=== PATIENT | female | born 1955 | race Caucasian/White ===

== ENCOUNTER 2017-10-01 18:17 | Observation (INO) ==
[2017-10-01] MEDS ORDERED: Naloxone 0.4 MG/ML INJ IVP PRN ×2 (23:00)
[2017-10-01] MEDS ORDERED: OXYCODONE Oral CONC 10 MG/0.5 ML ORAL.SYG SL PRN (23:00)
[2017-10-01] MEDS ORDERED: Ipratropium/Albuterol Neb 3 ML IH PRN (23:11)
--- NOTE | 2017-10-01 23:14 | Internal Med History&Physical ---
Date of Encounter: 10/01/17 Time of Encounter: 22:30 Assessment and Plan (1) DVT prophylaxis Current visit: Yes Status: Acute Heparin subcutaneously (2) Closed dislocation of left hip Current visit: Yes Status: Acute Patient twisted her left leg caused left hip pain. X-ray shows dislocation of the arthroplasty. - Continue pain control. - Nothing by mouth from midnight, IV fluid - Consult orthopedics Qualifiers: Encounter type: initial encounter Qualified Code(s): S73.005A - Unspecified dislocation of left hip, initial encounter (3) Status post total hip replacement, left Current visit: No Status: Acute Postoperative care per orthopedics (4) COPD (chronic obstructive pulmonary disease) Current visit: No Status: Chronic Stable, no wheezing, DuoNeb when necessary Qualifiers: COPD type: unspecified COPD Qualified Code(s): J44.9 - Chronic obstructive pulmonary disease, unspecified (5) Tobacco use Current visit: No Status: Chronic Smoking cessation education. Nicotine patch Internal Medicine - H&P: HPI Chief complaint: Left hip pain Admitted From: Home Plans for Post Hospital Care: Home History of present illness: Ms. Bailno is a 62 year old female with a history of COPD, tobacco abuse, GERD , S/P hip arthroplasty surgery 17 days ago, transferred from [facility] emergency room for left hip pain. Patient had left hip arthroplasty surgery 17 days ago in our hospital. Patient generally recover well and was discharged the from rehabilitation 3 days ago. This morning patient twisted her left leg, heard a sound of 'pop" and started to have left-sided hip pain. Patient was sent to [facility] emergency room and x-ray of hip shows arthroplasty dislocation, no fracture. Patient was treated with pain medication. Orthopedic consult was called by [facility] emergency room and recommended the patient transferred to our hospital for further management. Past Med Surg Social Fam HX - Past Medical History Medical history: other Psychiatric history: no psych history - Past Surgical History Surgical History: other - Social History Smoking Status: Current every day smoker Smokeless Tobacco Status: No Alcohol use: none Drug use: none Internal Medicine - H&P: Meds Enoxaparin [Lovenox] 30 mg SQ Q12HR 10 Days #20 syr 09/13/17 [Rx] OxyCODONE Immed Rel [Roxicodone 5 MG] 5 mg PO Q6HR PRN 7 Days #28 tablet [Rx] Amitriptyline [Elavil] 25 mg PO HS 09/14/17 [History] Diclofenac Sodium [Voltaren] 50 mg PO BID 09/14/17 [History] Escitalopram [Lexapro] 10 mg PO DAILY 09/14/17 [History] Esomeprazole Magnesium [Nexium] 40 mg PO DAILY 09/14/17 [History] Gabapentin [Neurontin] 400 mg PO TID 09/14/17 [History] Ipratropium/Albuterol Sulfate [Combivent Respimat Inhal [place]] 2 puff IH Q6H PRN 09/14/17 [History] Primidone [Mysoline] 50 mg PO BID 09/14/17 [History] Ranitidine HCl [Zantac] 300 mg PO DAILY 09/14/17 [History] Rizatriptan Benzoate [Maxalt] 10 mg PO AD PRN 09/14/17 [History] Tizanidine HCl 4 mg PO TID PRN 09/14/17 [History] Topiramate [Topamax] 100 mg PO BID 09/14/17 [History] 3 Allergy/AdvReac Type Severity Reaction Status Date / Time aspirin [ASA] AdvReac Vomiting Verified 09/14/17 09:41 baclofen AdvReac Vomiting Verified 09/14/17 09:41 simvastatin AdvReac Vomiting Verified 09/14/17 09:41 All Systems PM: A 10-system review of systems was performed and is negative for pertinent findings except as documented above in the HPI. - Constitutional Vitals: Temp Pulse Resp BP Pulse Ox 98.5 F 81 16 125/63 97 10/01/17 22:42 10/01/17 22:42 10/01/17 22:42 10/01/17 22:42 10/01/17 22:42 General appearance: Present: mild distress, A&O X 3, answers questions appropriately - Head Head exam: Present: atraumatic, normocephalic - Eye Eye exam: Present: PERRL, conjuntiva pink, sclera anicteric Pupils: Present: PERRL - Neck Neck exam general surgery: Present: supple, trachea midline. Absent: lymphadenopathy - Respiratory Respiratory exam: Present: CTAB. Absent: accessory muscle use, rales, rhonchi, wheezes - Cardiovascular Cardiovascular exam: Present: RRR, +S1, +S2. Absent: diastolic murmur, gallop, rubs, systolic murmur - GI/Abdominal GI/Abdominal exam: Present: normal bowel sounds, soft, no peritoneal signs. Absent: distended, tenderness - Extremities Exam Extremities exam: Present: warm, radial pulses palpable and symmetrical. Absent : calf tenderness, cyanotic, pedal edema Additional comments: Left hip swelling, tender, ROM limited due to pain. - Neurological Exam Neurological exam: Present: CN II-XII intact, oriented X3, no focal deficits. Absent: pronater drift, facial droop, speech deficit - Skin Skin exam: Present: dry, intact
[2017-10-02] MEDS: 0.9 % Sodium Chloride 1,000 ML IVC SCH ×4 (00:06→22:10)
[2017-10-02] MEDS: *HR* Heparin 5,000 UNIT/ML VIAL SQ SCH ×2 (00:06→04:41)
[2017-10-02] MEDS: Pantoprazole 40 MG VIAL IVP SCH ×2 (00:06→09:12)
[2017-10-02] MEDS: OXYCODONE Oral CONC 10 MG/0.5 ML ORAL.SYG SL PRN ×4 (00:07→22:10)
[2017-10-02] MEDS ORDERED: Ketorolac 15 MG/ML VIAL IVP PRN (02:40)
[2017-10-02 05:03] LABS: Basophils % 0.5 %; Eosinophils # 0.3 K/mcL (0.0-0.6); Eosinophils % 4.5 %; Hematocrit 30.3 % (35.3-44.9); Hemoglobin 9.9 g/dL (11.5-15.4); Immature Granulocytes % 0.2 % (0-4); Lymphocytes # 2.9 K/mcL (0.6-4.6); Lymphocytes % 48.7 %; Mean Corpuscular HGB Conc 32.7 g/dL (31.6-35.5); Mean Corpuscular Hemoglobin 32.1 pg (28.0-33.3); Mean Corpuscular Volume 98.4 fL (83.0-100.0); Mean Platelet Volume 9.3 fL (9.4-12.4); Monocytes # 0.5 K/mcL (0.0-1.3); Monocytes % 7.5 %; Neutrophils # 2.3 K/mcL (1.6-8.9); Platelet Count 414 K/mcL (140-400); Red Blood Count 3.08 M/mcL (3.82-4.97); Segmented Neutrophils % 38.6 %
[2017-10-02 05:09] LABS: INR 1.1; Prothrombin Time 12.4 Seconds (9.4-12.1)
[2017-10-02 05:22] LABS: BUN/Creatinine Ratio 4 (6-26); Blood Urea Nitrogen 3 mg/dL (8-23); Calcium 8.4 mg/dL (8.6-10.3); Carbon Dioxide 27 mEq/L (23-29); Chloride 109 mEq/L (98-107); Glucose 90 mg/dL (70-105); Osmolality,Calculated 284 (280-300); Potassium 3.8 mEq/L (3.5-5.1); Sodium 139 mEq/L (136-145); eGFR For African Americans > 60 (> 60); eGFR For Non-African Americans > 60 (> 60)
--- NOTE | 2017-10-02 07:22 | Anesthesia Evaluation PreOp ---
Date of Encounter: 10/02/17 Time of Encounter: 08:00 - Past History Planned Operation: Closed Reduction Left Hip Cardiac History: HTN Pulmonary History: Smoker, COPD, KRAIG Dx [employer] History: Other (Migraine, peripheral neuropathy) Other Medical History: GERD Anesthesia History: No Prior Anesthetic Complications, Past Anesthesia (L5-S1 Fusion Decompression) : No ([facility]) Alcohol Use: none Drug use: none Medications and Allergies Enoxaparin [Lovenox] 30 mg SQ Q12HR 10 Days #20 syr 09/13/17 [Rx] OxyCODONE Immed Rel [Roxicodone 5 MG] 5 mg PO Q6HR PRN 7 Days #28 tablet [Rx] Amitriptyline [Elavil] 25 mg PO HS 09/14/17 [History] Diclofenac Sodium [Voltaren] 50 mg PO BID 09/14/17 [History] Escitalopram [Lexapro] 10 mg PO DAILY 09/14/17 [History] Esomeprazole Magnesium [Nexium] 40 mg PO DAILY 09/14/17 [History] Gabapentin [Neurontin] 400 mg PO TID 09/14/17 [History] Ipratropium/Albuterol Sulfate [Combivent Respimat Inhal [place]] 2 puff IH Q6H PRN 09/14/17 [History] Primidone [Mysoline] 50 mg PO BID 09/14/17 [History] Ranitidine HCl [Zantac] 300 mg PO DAILY 09/14/17 [History] Rizatriptan Benzoate [Maxalt] 10 mg PO AD PRN 09/14/17 [History] Tizanidine HCl 4 mg PO TID PRN 09/14/17 [History] Topiramate [Topamax] 100 mg PO BID 09/14/17 [History] 3 Allergy/AdvReac Type Severity Reaction Status Date / Time aspirin [ASA] AdvReac Vomiting Verified 09/14/17 09:41 baclofen AdvReac Vomiting Verified 09/14/17 09:41 simvastatin AdvReac Vomiting Verified 09/14/17 09:41 - Meds/Allergy Pre-op Review Medications Reviewed: Yes Allergies Reviewed: Yes Beta Blockers on Current Med List: No Anesthesia Results - Labs 10/02/17 04:14 10/02/17 04:14 Anesthesia Exam O2 Sat Height 1.7 m Weight 75.07 kg O2 Sat by Pulse Oximetry 97 O2 Sat by Pulse Oximetry 99 O2 Sat by Pulse Oximetry 97 Vital Signs Temp Pulse Resp BP Pulse Ox 98.5 F 81 16 125/63 97 10/01/17 22:42 10/01/17 22:42 10/01/17 22:42 10/01/17 22:42 10/01/17 22:42 Height: 5'7 Weight: 165 lbs NPO (# of Hours): MN Pain Scale: 2 - HEENT Pupil (Motor): Pupils equal, EOMI Mallampati: II Teeth: Edentulous Oral Opening: Greater than 3 - [employer] LOC: Oriented [employer] Motor: Normal RUE, Normal LUE, Normal RLE, Normal LLE, Normal Face [employer] Sensory: Normal: RUE, LUE, RLE, LLE, Face - Cardiac Rhythm: Regular Murmur: None JVD: No Carotid Bruit: No - Pulmonary Breath Sounds: bilateral Clear Respiratory Effort: Symmetrical Anesthesia Assess/Plan ASA Score: 3 (HTN KRAIG COPD) Modified Keene Scale for Level of Consciousness: Cooperative, oriented, and tranquil Anesthetic Plan: General Monitoring Plan: Standard Monitors Recovery Plan: PACU (Discussed GA, agrees to proceed)
[2017-10-02] MEDS ORDERED: Famotidine 20 MG/2 ML VIAL IVP ONE (07:46)
[2017-10-02] MEDS ORDERED: Acetaminophen IV 1,000 MG/100 ML INFUS..BTL IVPB ONE (07:47)
[2017-10-02] MEDS ORDERED: *HR* Propofol 200 MG/20 ML VIAL IVP ONE (07:54)
[2017-10-02] MEDS ORDERED: *HR* FentaNYL (PF) 100 MCG/2 ML VIAL ONE (07:54)
[2017-10-02] MEDS ORDERED: *HR* Succinylcholine 200 MG/10 ML VIAL IVP ONE (07:55)
[2017-10-02] MEDS ORDERED: Ondansetron 4 MG/2 ML VIAL ONE (07:55)
[2017-10-02] MEDS ORDERED: Lidocaine -MPF 2% 2 ML VIAL ONE (07:55)
--- NOTE | 2017-10-02 08:02 | Orthopedic Consult Note ---
Date of Encounter: 10/02/17 Time of Encounter: 08:00 Assessment and Plan (1) Failed total hip arthroplasty with dislocation Current Visit: Yes Status: Acute Patient will be taken to operating room for a closed reduction of the total hip. The risks, benefits alternatives were discussed the patient. Postoperative management was also discussed the patient. Qualifiers: Encounter type: initial encounter Qualified Code(s): T84.028A - Dislocation of other internal joint prosthesis, initial encounter; Z96.649 - Presence of unspecified artificial hip joint; Z96.649 - Presence of unspecified artificial hip joint (2) Status post total hip replacement, left Current Visit: No Status: Acute History of Present Illness Chief complaint: Left hip pain HPI: Ms. Bailon is a 62 year old female who is postoperative week #4 status post a left total hip arthroplasty. Patient was at home yesterday when she is twisting getting her medication bottle and felt a hip pop out. She has severe pain. Patient was taken to the [facility] ER where she was told if hip dislocated. She is transferred here for surgical care. Patient reports moderate pain right now. This is her first dislocation. Patient was just seen in the office 3 days ago. No complications with the surgery. Past Med Surg Social Fam HX - Past Medical History Medical history: other Psychiatric history: no psych history - Past Surgical History Surgical History: other - Social History Smoking Status: Current every day smoker Smokeless Tobacco Status: No Alcohol use: none Drug use: none Medications and Allergies Enoxaparin [Lovenox] 30 mg SQ Q12HR 10 Days #20 syr 09/13/17 [Rx] OxyCODONE Immed Rel [Roxicodone 5 MG] 5 mg PO Q6HR PRN 7 Days #28 tablet [Rx] Amitriptyline [Elavil] 25 mg PO HS 09/14/17 [History] Diclofenac Sodium [Voltaren] 50 mg PO BID 09/14/17 [History] Escitalopram [Lexapro] 10 mg PO DAILY 09/14/17 [History] Esomeprazole Magnesium [Nexium] 40 mg PO DAILY 09/14/17 [History] Gabapentin [Neurontin] 400 mg PO TID 09/14/17 [History] Ipratropium/Albuterol Sulfate [Combivent Respimat Inhal [place]] 2 puff IH Q6H PRN 09/14/17 [History] Primidone [Mysoline] 50 mg PO BID 09/14/17 [History] Ranitidine HCl [Zantac] 300 mg PO DAILY 09/14/17 [History] Rizatriptan Benzoate [Maxalt] 10 mg PO AD PRN 09/14/17 [History] Tizanidine HCl 4 mg PO TID PRN 09/14/17 [History] Topiramate [Topamax] 100 mg PO BID 09/14/17 [History] 3 Allergy/AdvReac Type Severity Reaction Status Date / Time aspirin [ASA] AdvReac Vomiting Verified 09/14/17 09:41 baclofen AdvReac Vomiting Verified 09/14/17 09:41 simvastatin AdvReac Vomiting Verified 09/14/17 09:41 All Systems Reviewed: The remainder of the systems were reviewed and are negative Physical Exam - Constitutional Vitals: Temp Pulse Resp BP Pulse Ox 98.0 F 68 16 133/69 97 10/02/17 06:44 10/02/17 06:44 10/02/17 06:44 10/02/17 06:44 10/02/17 06:44 General appearance IM: mild distress, A&O X 3, pleasant, answers questions appropriately Exam: Left lower extremity: Dressings in place at surgical wounds, left hip is flexed and adducted, unable to range hip secondary to severe pain. Leg is shortened. Patient is grossly vast intact distally. Results - Labs Result Diagrams: 10/02/17 04:14 10/02/17 04:14 Labs: Abnormal lab results RBC 3.08 M/mcL (3.82-4.97) L 10/02/17 04:14 Hgb 9.9 g/dL (11.5-15.4) L 10/02/17 04:14 Hct 30.3 % (35.3-44.9) L 10/02/17 04:14 Plt Count 414 K/mcL (140-400) H 10/02/17 04:14 MPV 9.3 fL (9.4-12.4) L 10/02/17 04:14 PT 12.4 Seconds (9.4-12.1) H 10/02/17 04:14 Chloride 109 mEq/L (98-107) H 10/02/17 04:14 BUN 3 mg/dL (8-23) L 10/02/17 04:14 BUN/Creatinine Ratio 4 (6-26) L 10/02/17 04:14 Calcium 8.4 mg/dL (8.6-10.3) L 10/02/17 04:14 H & H 10/02/17 Range/Units 04:14 Hgb 9.9 L (11.5-15.4) g/dL Hct 30.3 L (35.3-44.9) % All other labs normal. - Diagnostic results Hip x-ray: image reviewed (Left total hip arthroplasty dislocation, no loosening , no fractures) Consult Discharge Plan - Plan Referrals: Giselle Herny, [employer] [Primary Care Provider] -
[2017-10-02] MEDS ORDERED: Dexamethasone 4 MG/ML VIAL ONE (08:11)
[2017-10-02] MEDS ORDERED: Nicotine 21 MG PATCH.TD24 TD SCH (09:00)
--- NOTE | 2017-10-02 09:18 | Anesthesia Evaluation Post Op ---
Date of Encounter: 10/02/17 Time of Encounter: 08:45 - Vital Signs Vital Signs: Vital Signs/O2 Sat/Glucose, Most Current Temp Pulse Resp BP Pulse Ox 10/02/17 09:04 97.7 F 69 18 122/69 99 10/02/17 08:54 98.2 F 67 20 112/50 100 10/02/17 08:44 97.9 F 65 20 114/58 100 10/02/17 08:34 97.9 F 76 16 124/59 97 10/02/17 08:24 97.9 F 72 14 108/54 94 10/02/17 06:44 98.0 F 68 16 133/69 97 - Lungs Lungs: Clear Ascult./Percussion - Airway Airway: Non-obstructed - Cardiovascular Regular Rate - Mental Status Mental Status: Alert & Oriented, Answers Appropriately - Pain Pain Scale: 0 - Nausea Vomiting Nausea Vomiting: Not Present - Hydration Hydration: Ice chips - Discharge PostOp Status: Transfer Patient to floor
[2017-10-02] MEDS ORDERED: Naloxone 0.4 MG/ML INJ IVP PRN ×2 (09:21)
[2017-10-02] MEDS ORDERED: OXYCODONE Oral CONC 10 MG/0.5 ML ORAL.SYG SL PRN (09:21)
[2017-10-02] MEDS ORDERED: tiZANidine 4 MG TABLET PO PRN (09:21)
[2017-10-02] MEDS ORDERED: Ipratropium/Albuterol Neb 3 ML IH PRN ×2 (09:21)
[2017-10-02] MEDS ORDERED: (Rizatriptan Benzoate [Maxalt] 10 MG) PO PRN (09:30)
[2017-10-02] MEDS: Topiramate 100 MG TABLET PO SCH ×2 (09:51→19:34)
[2017-10-02] MEDS: Gabapentin 400 MG CAPSULE PO SCH ×3 (09:51→19:34)
--- NOTE | 2017-10-02 10:07 | Internal Med Progress Note ---
<Casper Thomas - Last Filed: 10/02/17 14:15> Date of Encounter: 10/02/17 Time of Encounter: 14:15 - Assessment and plan (1) Closed dislocation of left hip Current Visit: Yes Status: Acute Assessment and plan: Dislocation of the Left hip following arthroplasty 17 days before Patient underwent reduction in the OR this morning We will continue pain medication Qualifiers: Encounter type: initial encounter Qualified Code(s): S73.005A - Unspecified dislocation of left hip, initial encounter (2) Status post total hip replacement, left Current Visit: No Status: Chronic Assessment and plan: Postoperative care per orthopedics PT/OT Will be consulted (3) COPD (chronic obstructive pulmonary disease) Current Visit: No Status: Chronic Assessment and plan: Stable, no wheezing, DuoNeb when necessary Qualifiers: COPD type: unspecified COPD Qualified Code(s): J44.9 - Chronic obstructive pulmonary disease, unspecified (4) Tobacco use Current Visit: No Status: Chronic Assessment and plan: Smoking cessation education. Nicotine patch (5) DVT prophylaxis Current Visit: Yes Status: Acute Assessment and plan: SQ Heparin - Subjective Interval history: The patient is resting comfortably in bedside chair at time of exam. She says that since the reduction earlier her hip feels completely better. She says that basically she was leaning over to grab some medications at home, and at that time she felt her hip pop out. She was not able to move it and determined it was the best idea to go to the hospital at that time. She complains that her left leg has been swelling since the time of the arthroplasty, and has been unremitting. She has tried using compression stockings, however she is afraid that it will cut off circulation. She also has numbness in her left leg. She does say that while getting PT, she noticed that her left knee felt unstable, and had clicking and popping. - Constitutional Vitals: Temp Pulse Resp BP Pulse Ox 97.6 F 79 16 132/68 97 10/02/17 09:30 10/02/17 09:52 10/02/17 09:52 10/02/17 09:52 10/02/17 09:52 General appearance: Present: mild distress, A&O X 3, answers questions appropriately Exam: Gen: Vitals noted. No acute distress. AAOx3 HEENT: PERRL/EOMI, oropharynx clear, Normocephalic, atraumatic Neck: Supple. No adenopathy. Cardiac: RRR, no murmur, +S1/S2 Pulmonary: Mildly diminished b/l Abdomen: soft, nontender, BS noted, no guarding Back: Nontender throughout. MSK: s/p left hip arthroplasty, dislocation and reduction under sedation. Left leg remains in brace. Distal movement intact. Extremities: 1+ edema in the LLE, numbness and tingling present on exam with light touch. She says that this has been the case since surgery. Neuro: A&Ox3, moves all extremities, no focal deficits Psych: Appropriate mood and behavior Internal Medicine: Result - Labs CBC & Chem 7: 10/02/17 04:14 10/02/17 04:14 Labs: Short CBC 10/02/17 Range/Units 04:14 WBC 6.0 (4.3-11.1) K/mcL Hgb 9.9 L (11.5-15.4) g/dL Hct 30.3 L (35.3-44.9) % Plt Count 414 H (140-400) K/mcL Neutrophils # 2.3 (1.6-8.9) K/mcL BMP 10/02/17 04:14 Sodium 139 Potassium 3.8 Chloride 109 H Carbon Dioxide 27 BUN 3 L Creatinine 0.69 Glucose 90 Calcium 8.4 L - ABG Interpretation ABG results: PT/INR, D-dimer PT 12.4 Seconds (9.4-12.1) H 10/02/17 04:14 - Impressions Impressions Fluoroscopy 10/02/17 00:00 IMPRESSION: Intraprocedural fluoroscopic spot images as above. See separate procedure report for more information. D/ /02/2017 09:06:55 Amy Nunn MD / Angelica Solorio Interpreting Provider: Amy Nunn MD Hip X-Ray 10/02/17 00:00 IMPRESSION: Intraprocedural fluoroscopic spot images as above. See separate procedure report for more information. D/ /02/2017 09:06:55 Amy Nunn MD / Angelica Solorio Interpreting Provider: Amy Nunn MD - VTE Documentation of Mechanical Device: Intermittent pneumatic compression device Consult Discharge Plan - Plan Referrals: Giselle Henry, [employer] [Primary Care Provider] - <Don Singletary - Last Filed: 10/02/17 17:51> Date of Encounter: 10/02/17 - Constitutional Vitals: Temp Pulse Resp BP Pulse Ox 98.4 F 84 16 128/79 98 10/02/17 15:33 10/02/17 15:33 10/02/17 15:33 10/02/17 15:33 10/02/17 15:33 Internal Medicine: Result - Labs CBC & Chem 7: 10/02/17 04:14 10/02/17 04:14 Labs: Short CBC 10/02/17 Range/Units 04:14 WBC 6.0 (4.3-11.1) K/mcL Hgb 9.9 L (11.5-15.4) g/dL Hct 30.3 L (35.3-44.9) % Plt Count 414 H (140-400) K/mcL Neutrophils # 2.3 (1.6-8.9) K/mcL BMP 10/02/17 04:14 Sodium 139 Potassium 3.8 Chloride 109 H Carbon Dioxide 27 BUN 3 L Creatinine 0.69 Glucose 90 Calcium 8.4 L - ABG Interpretation ABG results: PT/INR, D-dimer PT 12.4 Seconds (9.4-12.1) H 10/02/17 04:14 - Impressions Impressions Fluoroscopy 10/02/17 00:00 IMPRESSION: Intraprocedural fluoroscopic spot images as above. See separate procedure report for more information. D/ / 10/02/2017 09:06:55 Amy Nunn MD / Angelica Solorio Interpreting Provider: Amy Nunn MD Hip X-Ray 10/02/17 00:00 IMPRESSION: Intraprocedural fluoroscopic spot images as above. See separate procedure report for more information. D/ 10/02/2017 09:06:55 Amy Nunn MD / Angelica Solorio Interpreting Provider: Amy Nunn MD - Attending Attestation I examined this patient and my medical decision-making was reviewed with the Resident Physician Dr. Thomas. I agree with the documented findings, disposition and treatment plan as described except to the extent set forth below. Ms. Bailon is a 62 year old female with a history of COPD, tobacco abuse, GERD , S/P hip arthroplasty surgery 17 days ago, transferred from [place] emergency room for left hip pain. She did develop Left hip arthroplasty dislocation, no fracture. Pt does c/o Left leg swelling and pain too. Gen: A, A, O x3 Chest : Diminished BS Heart: S1S2+ Ext: Moderate tenderness Left Hip, Significant swelling Left leg, no calf tenderness noticed a/p 1. Left hip pain due to Arthroplasty dislocation Just had closed reduction by Ortho 2. Left leg swelling with recent Hip surgery and not on proper anti coag at home concerning for DVT will check venous doppler in AM mean while will give therapeutic dose of Lovenox
[2017-10-02] MEDS: Ketorolac 15 MG/ML VIAL IVP PRN ×2 (11:44→19:34)
[2017-10-02] MEDS: *HR* Enoxaparin 80 MG/0.8 ML SYRINGE SQ SCH (16:38)
--- NOTE | 2017-10-02 17:52 | Operative Note ---
Date of procedure: 10/02/17 Pre-op diagnosis: Left total hip arthroplasty dislocation Post-op diagnosis: same Procedure: Left total hip arthroplasty closed reduction Anesthesia: SAWYER Surgeon: Cal Hatfield Was there an pastry assistant present: No Estimated blood loss (cc): 0 Specimen: 0 Condition: stable Disposition: PACU Procedure in Detail: Indications for surgery: Patient is a 62-year-old woman status post a left total hip arthroplasty 3 weeks ago. Patient made a twisting movement causing a dislocation of the hip. Procedure: The patient is brought to operating room and placed or table in supine position. She underwent general anesthesia. A timeout was performed. Axial traction was applied to the left lower extremity and the implants felt engaging. The hip was then flexed, lateral plexus traction and abducted until large pop felt as the hip reduced. The fluoroscopy unit was brought in and the hip was visualized showing it to be located. The patient is placed into a knee immobilizer followed by an abduction wedge pillow. She was then extubated and taken to recovery room stable condition.
[2017-10-02] MEDS ORDERED: *HR* Heparin 5,000 UNIT/ML VIAL SQ SCH (18:00)
[2017-10-03] MEDS: OXYCODONE Oral CONC 10 MG/0.5 ML ORAL.SYG SL PRN (03:19)
[2017-10-03] MEDS: *HR* Enoxaparin 80 MG/0.8 ML SYRINGE SQ SCH (06:09)
[2017-10-03 06:36] LABS: Basophils % 0.3 %; Eosinophils # 0.2 K/mcL (0.0-0.6); Eosinophils % 3.1 %; Hematocrit 29.8 % (35.3-44.9); Hemoglobin 9.6 g/dL (11.5-15.4); Immature Granulocytes % 0.6 % (0-4); Immature Platelets 1.8 % (1.1-6.1); Lymphocytes % 46.8 %; Mean Corpuscular HGB Conc 32.2 g/dL (31.6-35.5); Mean Corpuscular Hemoglobin 32.3 pg (28.0-33.3); Mean Corpuscular Volume 100.3 fL (83.0-100.0); Mean Platelet Volume 9.7 fL (9.4-12.4); Monocytes # 0.4 K/mcL (0.0-1.3); Neutrophils # 2.7 K/mcL (1.6-8.9); Nucleated Red Blood Cells 0.5 /100 WBC (0); Platelet Count 370 K/mcL (140-400); Red Blood Count 2.97 M/mcL (3.82-4.97); Red Cell Distribution Width 14.1 % (11.5-14.5); Segmented Neutrophils % 43.2 %
[2017-10-03 06:45] LABS: BUN/Creatinine Ratio 9 (6-26); Blood Urea Nitrogen 7 mg/dL (8-23); Calcium 8.6 mg/dL (8.6-10.3); Carbon Dioxide 26 mEq/L (23-29); Chloride 107 mEq/L (98-107); Glucose 107 mg/dL (70-105); Osmolality,Calculated 282 (280-300); Potassium 3.6 mEq/L (3.5-5.1); Sodium 137 mEq/L (136-145); eGFR For African Americans > 60 (> 60); eGFR For Non-African Americans > 60 (> 60)
[2017-10-03] MEDS ORDERED: Nicotine 21 MG PATCH.TD24 TD SCH (09:00)
[2017-10-03] MEDS ORDERED: Pantoprazole 40 MG VIAL IVP SCH (09:00)
[2017-10-03] MEDS: Topiramate 100 MG TABLET PO SCH (09:44)
[2017-10-03] MEDS: Gabapentin 400 MG CAPSULE PO SCH (09:44)
[2017-10-03 12:22] VITALS: BP 125/67
--- NOTE | 2017-10-03 13:42 | Discharge Summary ---
<Casper Thomas - Last Filed: 10/03/17 14:27> Date of Encounter: 10/03/17 Time of Encounter: 08:40 - Discharge Diagnosis (1) Closed dislocation of left hip Priority: Primary Status: Acute Qualifiers: Encounter type: initial encounter Qualified Code(s): S73.005A - Unspecified dislocation of left hip, initial encounter (2) Status post total hip replacement, left Priority: Secondary Status: Chronic (3) COPD (chronic obstructive pulmonary disease) Priority: Secondary Status: Chronic Qualifiers: COPD type: unspecified COPD Qualified Code(s): J44.9 - Chronic obstructive pulmonary disease, unspecified (4) Tobacco use Priority: Secondary Status: Chronic Hospital course: Ms. Bailon is a 62 year old female with history of COPD, tobacco abuse, GERD, status post hip arthroplasty 19 days ago who was transferred from [place] emergency room for left hip pain. The patient was discharged from rehabilitation facility approximately 3 days prior to presentation. She bent over to pickler helper something off the floor, and at that time she said she felt her hip pop. From then on she felt like she could not move it and she was in extreme pain. She went to the hospital at which time she was found to have a dislocation of the arthroplasty hip, and was transferred to [facility]. The following morning, the patient was taken to the OR for reduction of hip dislocation under anesthesia, and she tolerated this procedure with no complications. On exam that morning and the following morning the patient did demonstrate a significantly swollen left leg, which she mentioned was present since the first surgery. Because the patient is at high risk following surgery for DVT, I did start the patient on therapeutic Lovenox as well as get a Doppler ultrasound of the left leg which did not demonstrate any clots. Therapeutic Lovenox was stopped at that time. The patient was seen and evaluated by physical therapy and occupational therapy who determined that the patient is a good candidate for home therapy and treatment. I spoke with the patient at length, and she believes that this is an appropriate option. The orthopedic surgeon also agrees that the patient is prepared to go home. I will provide the patient with 2 days worth of pain medication for severe pain, and she should follow up with both primary care and orthopedic surgery in 3-5 days. Discharge discussed with: patient, nurse, social work, case management, healthcare economics consultant - Time Spent with Patient Total time spent providing and/or coordinating discharge services: - Discharge Medications Prescriptions: Enoxaparin [Lovenox] 30 mg SQ Q12HR 14 Days syr HYDROcodone/Acet 5/325 mg [[place] 5-325 mg] 1 tab PO Q6H PRN 2 Days #8 tab PRN Reason: severe pain Nicotine Patch [Nicoderm] 21 mg TD DAILY #30 patch.td24 Home Medications: OxyCODONE Immed Rel [Roxicodone 5 MG] 5 mg PO Q6HR PRN 7 Days #28 tablet [Rx] Amitriptyline [Elavil] 25 mg PO HS 09/14/17 [History] Diclofenac Sodium [Voltaren] 50 mg PO BID 09/14/17 [History] Escitalopram [Lexapro] 10 mg PO DAILY 09/14/17 [History] Esomeprazole Magnesium [Nexium] 40 mg PO DAILY 09/14/17 [History] Gabapentin [Neurontin] 400 mg PO TID 09/14/17 [History] Ipratropium/Albuterol Sulfate [Combivent Respimat Inhal [place]] 2 puff IH Q6H PRN 09/14/17 [History] Primidone [Mysoline] 50 mg PO BID 09/14/17 [History] Ranitidine HCl [Zantac] 300 mg PO DAILY 09/14/17 [History] Rizatriptan Benzoate [Maxalt] 10 mg PO AD PRN 09/14/17 [History] Tizanidine HCl 4 mg PO HS 09/14/17 [History] Topiramate [Topamax] 100 mg PO BID 09/14/17 [History] Furosemide [Lasix] 20 mg PO DAILY PRN 10/02/17 [History] Nicotine Patch [Nicoderm] 21 mg TD DAILY 10/02/17 [History] Enoxaparin [Lovenox] 30 mg SQ Q12HR 14 Days syr 10/03/17 [Rx] HYDROcodone/Acet 5/325 mg [[place] 5-325 mg] 1 tab PO Q6H PRN 2 Days #8 tab [Rx] Nicotine Patch [Nicoderm] 21 mg TD DAILY #30 patch.td24 10/03/17 [Rx] Allergies/Adverse Reactions: 3 Allergy/AdvReac Type Severity Reaction Status Date / Time aspirin [ASA] AdvReac Vomiting Verified 10/02/17 11:09 baclofen AdvReac Vomiting Verified 10/02/17 11:09 simvastatin AdvReac Vomiting Verified 10/02/17 11:09 Date of admission: 10/01/17 22:23 Primary care physician: Giselle Henry CNP Consults: 10/02/17 09:21 Consult to Physical Therapy [CONS] Stat Comment: Evaluate, develop and implement POC Reason for Consult: ambulation WBAT Total hip precautions Keep knee immobilzer in place Does patient have active BEDREST order?: No Is patient medically & hemodynamically stable?: Yes Patient assessed for mobility or mobilized this visit?: No 10/02/17 09:25 OT [Consult to Occupational Therapy] [CONS] Routine Comment: Evaluate, develop and implement POC Reason for Consult: WEIGHT BEARING TOLERATED Does patient have active BEDREST order?: No Is patient medically & hemodynamically stable?: Yes Discharging clinician: Casper Thomas Anticipated date of discharge: 10/03/17 - Constitutional Vitals: Temp Pulse Resp BP Pulse Ox 97.9 F 79 16 125/67 95 10/03/17 12:21 10/03/17 12:21 10/03/17 12:21 10/03/17 12:21 10/03/17 12:21 General appearance: Present: mild distress, A&O X 3, answers questions appropriately Exam: Gen: Vitals noted. No acute distress. AAOx3 HEENT: PERRL/EOMI, oropharynx clear, Normocephalic, atraumatic Neck: Supple. No adenopathy. Cardiac: RRR, no murmur, +S1/S2 Pulmonary: Mildly diminished b/l Abdomen: soft, nontender, BS noted, no guarding Back: Nontender throughout. MSK: s/p left hip arthroplasty, dislocation and reduction under sedation. Left leg remains in brace. Distal movement intact. Extremities: 1+ edema in the LLE, numbness and tingling present on exam with light touch. She says that this has been the case since surgery. Neuro: A&Ox3, moves all extremities, no focal deficits Psych: Appropriate mood and behavior - Patient Status Disposition: Home Health Service Condition: Fair Functional capacity at discharge: wheelchair bound Overall status at discharge: patient is progressing back to baseline - Discharge Instructions Follow Up With: Giselle Henry, BID WRITER [Primary Care Provider] - Additional Instructions: -Follow-up with primary care and orthopedic surgery in 3-5 days -Do not ambulate without assistance, or without authorization from surgeon or PT /OT -You may use over the counter pain medication such as tylenol or Ibuprofen for mild pain. Use prescribed pain medication for severe pain (6-9) -Return to the ED for recurrence of pain or symptoms -Return to the ED for worsening leg swelling, redness, or pain. Also return for chest pain, rapid heart rate, or shortness of breath above baseline. Follow-up appointments: If there is not an appointment listed below, please call your physician and schedule a follow-up appointment. If you have congestive heart failure and your symptoms return, make an appointment with your physician. Medication List: Carry an up to date list of medications you are taking at all time. We have given you an updated medication list including any new medications that you have been prescribed. Please provide that list to your primary provider Symptoms: If your condition changes or you experience any of the following symptoms, notify your physician immediately: Unusual or worsening pain, fever, persistent nausea and vomiting, bleeding, increase in swelling (especially in your legs), sudden weight gain, extreme dizziness, chest pain, increased drainage or redness from a wound or incision. Go to the emergency department if you experience a problem with breathing. Weights: If you have a history of swelling or shortness of breath, weigh yourself daily and notify your physician if you have a weight gain of two or more pounds in one day or 5 or more pounds in a week. If you experience any of the warning signs for stroke: Sudden numbness or weakness of the face, arm or leg; especially on one side of the body, sudden confusion, trouble speaking or understanding, sudden trouble seeing in one or both eyes, sudden trouble walking, dizziness, loss of balance or coordination, sudden sever headache with no cause; Call 911 or go to the emergency room. Stroke is a medical emergency. Some risk factors for stroke: Age, cigarette smoking, diabetes, excessive alcohol consumption, family history , high blood pressure, overweight, physical inactivity, prior stroke, heart attack, diagnosis of carotid artery stenosis or other artery disease. If you smoke, STOP: Smoking or tobacco use significantly increases your risk of heart and lung disease. Your chance of disease greatly increases if you continue to smoke. For more information, call the [place] tobacco quit line for smoking cessation 3-355- QUIT-NOW ( ) - Diet and Activity Activity: as per physical therapy Diet: advance to your usual diet - VTE Documentation of Mechanical Device: Intermittent pneumatic compression device <Dominic Santos - Last Filed: 10/03/17 17:51> Date of Encounter: 10/03/17 Hospital course: Ms. Bailon is a 62 year old female - Time Spent with Patient Total time spent providing and/or coordinating discharge services: Date of admission: 10/01/17 22:23 Primary care physician: Giselle Henry CNP Consults: 10/02/17 09:21 Consult to Physical Therapy [CONS] Stat Comment: Evaluate, develop and implement POC Reason for Consult: ambulation WBAT Total hip precautions Keep knee immobilzer in place Does patient have active BEDREST order?: No Is patient medically & hemodynamically stable?: Yes Patient assessed for mobility or mobilized this visit?: No 10/02/17 09:25 OT [Consult to Occupational Therapy] [CONS] Routine Comment: Evaluate, develop and implement POC Reason for Consult: WEIGHT BEARING TOLERATED Does patient have active BEDREST order?: No Is patient medically & hemodynamically stable?: Yes - Constitutional Vitals: Temp Pulse Resp BP Pulse Ox 97.9 F 79 16 125/67 95 10/03/17 12:21 10/03/17 12:21 10/03/17 12:21 10/03/17 12:21 10/03/17 12:21 - Attending Attestation I examined this patient and my medical decision-making was reviewed with the Resident Physician. I agree with the documented findings, disposition and treatment plan as described except to the extent set forth below.
--- NOTE | 2017-10-03 14:10 | Physician Discharge Referral ---
<Casper Thomas - Last Filed: 10/03/17 14:08> Home Health/Hosp Referral Info Transfer to: Home Health Attending Provider: Dominic Santos Provider in Charge Post Discharge: PCP - Diagnosis (1) Closed dislocation of left hip Priority: Primary Status: Acute (2) Status post total hip replacement, left Priority: Primary Status: Chronic (3) COPD (chronic obstructive pulmonary disease) Priority: Secondary Status: Chronic (4) Tobacco use Priority: Secondary Status: Chronic - Respiratory Orders Oxygen / L per min (Per home prescription) Smoking Cessation: Smoking cessation has been advised. For more information, call the [place] Tobacco Quit Line at 0-469-NOSH-NOW. - Diet/Nutrition Diet/Nutrition Orders: Regular - Activity Activity Orders: Chair (Per PT) - Services Needed Following services are medically necessary services: Nursing, Home Health Aide, Physical Therapy, Occupational Therapy - Transfer Medications Prescriptions: Enoxaparin [Lovenox] 30 mg SQ Q12HR 14 Days syr HYDROcodone/Acet 5/325 mg [[place] 5-325 mg] 1 tab PO Q6H PRN 2 Days #8 tab PRN Reason: severe pain Nicotine Patch [Nicoderm] 21 mg TD DAILY #30 patch.td24 Home Medications: OxyCODONE Immed Rel [Roxicodone 5 MG] 5 mg PO Q6HR PRN 7 Days #28 tablet [Rx] Amitriptyline [Elavil] 25 mg PO HS 09/14/17 [History] Diclofenac Sodium [Voltaren] 50 mg PO BID 09/14/17 [History] Escitalopram [Lexapro] 10 mg PO DAILY 09/14/17 [History] Esomeprazole Magnesium [Nexium] 40 mg PO DAILY 09/14/17 [History] Gabapentin [Neurontin] 400 mg PO TID 09/14/17 [History] Ipratropium/Albuterol Sulfate [Combivent Respimat Inhal [place]] 2 puff IH Q6H PRN 09/14/17 [History] Primidone [Mysoline] 50 mg PO BID 09/14/17 [History] Ranitidine HCl [Zantac] 300 mg PO DAILY 09/14/17 [History] Rizatriptan Benzoate [Maxalt] 10 mg PO AD PRN 09/14/17 [History] Tizanidine HCl 4 mg PO HS 09/14/17 [History] Topiramate [Topamax] 100 mg PO BID 09/14/17 [History] Furosemide [Lasix] 20 mg PO DAILY PRN 10/02/17 [History] Nicotine Patch [Nicoderm] 21 mg TD DAILY 10/02/17 [History] Enoxaparin [Lovenox] 30 mg SQ Q12HR 14 Days syr 10/03/17 [Rx] HYDROcodone/Acet 5/325 mg [[place] 5-325 mg] 1 tab PO Q6H PRN 2 Days #8 tab [Rx] Nicotine Patch [Nicoderm] 21 mg TD DAILY #30 patch.td24 10/03/17 [Rx] Allergies/Adverse Reactions: 3 Allergy/AdvReac Type Severity Reaction Status Date / Time aspirin [ASA] AdvReac Vomiting Verified 10/02/17 11:09 baclofen AdvReac Vomiting Verified 10/02/17 11:09 simvastatin AdvReac Vomiting Verified 10/02/17 11:09 Certification: Further, I certify that my clinical findings support that this patient is homebound (i.e. absences from home require considerable and taxing effort and are for medical reasons or islam services or infrequently or short duration when for other reasons) because: Homebound Reason: Patient requires assistance of a person or device to safely leave home, Post-surgery restriction and or conditions limit ability to leave home Attestation: My signature below is to certify that this patient is under my care and that I, or nurse practitioner, or a physician's assistant corporate secretary working with me, has a face-to -face encounter with this patient. <Dominic Santos - Last Filed: 10/03/17 17:55> - Respiratory Orders Smoking Cessation: Smoking cessation has been advised. For more information, call the [place] Tobacco Quit Line at 9-492-EJPJ-NOW. Certification: Further, I certify that my clinical findings support that this patient is homebound (i.e. absences from home require considerable and taxing effort and are for medical reasons or islam services or infrequently or short duration when for other reasons) because: Attestation: My signature below is to certify that this patient is under my care and that I, or nurse practitioner, or a physician's assistant corporate secretary working with me, has a face-to -face encounter with this patient. - Attending Attestation I examined this patient and my medical decision-making was reviewed with the Resident Physician. I agree with the documented findings, disposition and treatment plan as described except to the extent set forth below.
--- NOTE | 2017-10-03 15:35 | Orthopedics Progress Note ---
Date of Encounter: 10/03/17 Time of Encounter: 13:45 Subjective Principal diagnosis: POD#1 s/p Left total hip arthroplasty closed reduction 10/02 Interval history: Patient doing well today with no concerns. Pain tolerable/improving since reduction. No events overnight. Denies any n/t to extremity, denies calf pain. Continue in knee immoblizer. WBAT. Keep follow up with Dr. Salinas as scheduled next week. Objective Vital signs: Vital Signs Temp Pulse Resp BP Pulse Ox 10/03/17 12:21 97.9 F 79 16 125/67 95 10/03/17 06:47 98.6 F 69 17 116/63 92 10/03/17 02:58 98.4 F 76 16 115/67 93 10/02/17 22:52 98.7 F 64 16 147/74 96 10/02/17 19:08 98.4 F 76 18 128/70 96 Intake and Output 10/02/17 10/03/17 10/03/17 23:59 07:59 15:59 Intake Total 1240 / 1240 1240 / 1240 Output Total 1500 / 1500 1200 / 1200 1700 / 1700 Balance -260 / -260 -1200 / -1200 -460 / -460 Intake: IV Fluids 1000 / 1000 1000 / 1000 0.9 % Sodium Chloride 1,000 ML 1000 / 1000 @ 90 mls/hr IVC .[id number] [facility] Rx# :[id number] Oral 240 / 240 240 / 240 Output: Urine 1500 / 1500 1200 / 1200 1700 / 1700 Other: Meal Dinner Breakfast Percent of Meal Consumed 100% 90% Weight 79.515 kg Patient Weight 10/03/17 23:59 Weight 79.515 kg - Labs CBC & BMP: 10/03/17 04:09 10/03/17 04:09 Labs: Abnormal lab results RBC 2.97 M/mcL (3.82-4.97) L 10/03/17 04:09 Hgb 9.6 g/dL (11.5-15.4) L 10/03/17 04:09 Hct 29.8 % (35.3-44.9) L 10/03/17 04:09 MCV 100.3 fL (83.0-100.0) H 10/03/17 04:09 Nucleated RBCs/100 WBC 0.5 /100 WBC (0) H 10/03/17 04:09 PT 12.4 Seconds (9.4-12.1) H 10/02/17 04:14 BUN 7 mg/dL (8-23) L 10/03/17 04:09 Glucose 107 mg/dL (70-105) H 10/03/17 04:09 - VTE Documentation of Mechanical Device: Intermittent pneumatic compression device Consult Discharge Plan - Plan Additional Instructions: -Follow-up with primary care and orthopedic surgery in 3-5 days -Do not ambulate without assistance, or without authorization from surgeon or PT /OT -You may use over the counter pain medication such as tylenol or Ibuprofen for mild pain. Use prescribed pain medication for severe pain (6-03/27) -Return to the ED for recurrence of pain or symptoms -Return to the ED for worsening leg swelling, redness, or pain. Also return for chest pain, rapid heart rate, or shortness of breath above baseline. Follow-up appointments: If there is not an appointment listed below, please call your physician and schedule a follow-up appointment. If you have congestive heart failure and your symptoms return, make an appointment with your physician. Medication List: Carry an up to date list of medications you are taking at all time. We have given you an updated medication list including any new medications that you have been prescribed. Please provide that list to your primary provider Symptoms: If your condition changes or you experience any of the following symptoms, notify your physician immediately: Unusual or worsening pain, fever, persistent nausea and vomiting, bleeding, increase in swelling (especially in your legs), sudden weight gain, extreme dizziness, chest pain, increased drainage or redness from a wound or incision. Go to the emergency department if you experience a problem with breathing. Weights: If you have a history of swelling or shortness of breath, weigh yourself daily and notify your physician if you have a weight gain of two or more pounds in one day or 5 or more pounds in a week. If you experience any of the warning signs for stroke: Sudden numbness or weakness of the face, arm or leg; especially on one side of the body, sudden confusion, trouble speaking or understanding, sudden trouble seeing in one or both eyes, sudden trouble walking, dizziness, loss of balance or coordination, sudden sever headache with no cause; Call 911 or go to the emergency room. Stroke is a medical emergency. Some risk factors for stroke: Age, cigarette smoking, diabetes, excessive alcohol consumption, family history , high blood pressure, overweight, physical inactivity, prior stroke, heart attack, diagnosis of carotid artery stenosis or other artery disease. If you smoke, STOP: Smoking or tobacco use significantly increases your risk of heart and lung disease. Your chance of disease greatly increases if you continue to smoke. For more information, call the [place] tobacco quit line for smoking cessation - ( ) Referrals: Giselle Henry, DANCING TEACHER [Primary Care Provider] - Prescriptions: Enoxaparin [Lovenox] 30 mg SQ Q12HR 14 Days syr HYDROcodone/Acet 5/325 mg [[place] 5-325 mg] 1 tab PO Q6H PRN 2 Days #8 tab PRN Reason: severe pain Nicotine Patch [Nicoderm] 21 mg TD DAILY #30 patch.td24
== END 2017-10-03 15:22 | disposition home health service (06) ==
LOC: 3NENU
PROVIDERS: ADMIT Student in an Organized Health Care Education/Training Program; ATTEND Student in an Organized Health Care Education/Training Program

== ENCOUNTER 2017-10-19 06:03 | Observation (INO) ==
[2017-10-19] MEDS ORDERED: *HR* HYDROcodone/Acet 5/325 mg TABLET PO PRN ×2 (11:55→15:42)
[2017-10-19] MEDS ORDERED: Naloxone 0.4 MG/ML INJ IVP PRN ×3 (11:55→15:42)
[2017-10-19] MEDS ORDERED: Acetaminophen 325 MG TABLET PO PRN ×2 (11:55→15:42)
[2017-10-19] MEDS ORDERED: *HR* OxyCODONE Immed Rel 5 MG TABLET PO PRN (11:55)
[2017-10-19] MEDS ORDERED: 0.9 % Sodium Chloride 1,000 ML IVC SCH (12:00)
--- NOTE | 2017-10-19 12:10 | Orthopedic History & Physical ---
Date of Encounter: 10/20/17 Time of Encounter: 12:03 Assessment and Plan (1) Closed dislocation of left hip Current visit: No Status: Acute Ms. Bailon is a 62 year old female, seen at [facility] ED for a recurrent dislocation of Left total hip replacement early this morning. She was transferred to [facility] per for further orthopedic assessment and closed reduction. Per report, ED physicians attempted to close reduce her hip in the ED two times unsuccessfully. Patient had a L THR ROBOTIC 09/14/17 by , with an uneventful post- operative recovery. She had a dislocation of her left hip on 10/03/17, due to suspected fall per reports and underwent a closed reduction in OR by . She has been following up with in [facility] since this incident and doing well. Plan: Discussed and reviewed with . OR today with for Closed reduction of Left hip. Consent obtained and signed by patient. Awaiting repeat XRAYS and labwork NPO Pain control NWB to LLE DVT prophylaxis. Plan for D/C in AM. . (2) Status post total hip replacement, left Current visit: No Status: Chronic (3) COPD (chronic obstructive pulmonary disease) Current visit: No Status: Chronic Qualifiers: COPD type: unspecified COPD Qualified Code(s): J44.9 - Chronic obstructive pulmonary disease, unspecified (4) HTN (hypertension) Current visit: No Status: Chronic Qualifiers: Hypertension type: essential hypertension Qualified Code(s): I10 - Essential (primary) hypertension (5) KRAIG (obstructive sleep apnea) Current visit: No Status: Chronic History of Present Illness Chief complaint: Recurrent Left hip dislocation of Total hip replacement HPI: Ms. Bailon is a 62 year old female, seen at [facility] ED for a recurrent dislocation of Left total hip replacement early this morning. She was transferred to [facility] per for further orthopedic assessment and closed reduction. Per report, ED physicians attempted to close reduce her hip in the ED two times unsuccessfully. Patient had a L THR ROBOTIC 09/14/17 by , with an uneventful post- operative recovery. She had a dislocation of her left hip on 10/03/17, due to suspected fall per reports and underwent a closed reduction in OR by . She has been following up with in [facility] since this incident and doing well. Patient reports: Exam: A&O x 3, in no apparent distress. LLE: shortened and IR of leg Plan: OR today with for Closed reduction of Left hip. Consent obtained and signed by patient. Awaiting repeat XRAYS and labwork. Past Med Surg Social Fam HX - Past Medical History Medical history: COPD, GERD, other Psychiatric history: no psych history - Past Surgical History Surgical History: orthopedic, other, other - Social History Smoking Status: Current every day smoker Smokeless Tobacco Status: No Alcohol use: none Drug use: none Medications and Allergies Amitriptyline [Elavil] 25 mg PO HS 09/14/17 [History] Diclofenac Sodium [Voltaren] 50 mg PO BID 09/14/17 [History] Escitalopram [Lexapro] 10 mg PO DAILY 09/14/17 [History] Esomeprazole Magnesium [Nexium] 40 mg PO DAILY 09/14/17 [History] Gabapentin [Neurontin] 400 mg PO TID 09/14/17 [History] Ipratropium/Albuterol Sulfate [Combivent Respimat Inhal [place]] 2 puff IH Q6H PRN 09/14/17 [History] Primidone [Mysoline] 50 mg PO BID 09/14/17 [History] Ranitidine HCl [Zantac] 300 mg PO DAILY 09/14/17 [History] Rizatriptan Benzoate [Maxalt] 10 mg PO AD PRN 09/14/17 [History] Tizanidine HCl 4 mg PO HS 09/14/17 [History] Topiramate [Topamax] 100 mg PO BID 09/14/17 [History] Furosemide [Lasix] 20 mg PO DAILY PRN 10/02/17 [History] Carboxymethylcellulose Sodium [Refresh Plus] 1 drop OP DAILY PRN 10/19/17 [ History] HYDROcodone/Acet 5/325 mg [[place] 5-325 mg] 1 tab PO Q6H PRN 10/19/17 [History] Naproxen Sodium [Aleve] 220 mg PO DAILY PRN 10/19/17 [History] OxyCODONE Immed Rel [Roxicodone 5 MG] 5 mg PO Q4HR PRN 4 Days #12 tablet [Rx] 3 Allergy/AdvReac Type Severity Reaction Status Date / Time aspirin [ASA] AdvReac Vomiting Verified 10/19/17 11:37 baclofen AdvReac Vomiting Verified 10/19/17 11:37 simvastatin AdvReac Vomiting Verified 10/19/17 11:37 All Systems Reviewed: The remainder of the systems were reviewed and are negative - Constitutional Constitutional: as per HPI, weakness, no fever(s), no frequent falls - Cardiovascular Cardiovascular: no chest pain, no dyspnea on exertion, no edema, no irregular heart rhythm, no leg edema, no rapid heart rate, no syncope - Respiratory Respiratory: no cough, no dyspnea, no hemoptysis, no dyspnea on exertion - Musculoskeletal Musculoskeletal: abnormal gait, limited range of motion, muscle weakness, no back pain, no joint swelling, no numbness, no radiating pain into limb, no tingling Physical Exam - Constitutional Vitals: Temp Pulse Resp BP Pulse Ox 97.9 F 70 18 114/67 98 10/19/17 11:25 10/19/17 11:25 10/19/17 11:25 10/19/17 11:25 10/19/17 10:59 General appearance IM: A&O X 3, pleasant, no acute distress, answers questions appropriately Results - Labs Result Diagrams: 10/20/17 06:39 10/20/17 06:39 Labs: All other labs normal.
[2017-10-19] MEDS ORDERED: Acetaminophen IV 500 MG/50 ML INFUS..BTL IVPB ONE (12:47)
[2017-10-19 12:58] LABS: INR 1.1; Prothrombin Time 11.9 Seconds (9.4-12.1)
[2017-10-19 13:00] LABS: Activated Partial Thrombo Time 27.4 Seconds (26.0-36.0)
[2017-10-19 13:12] LABS: Alanine Aminotransferase 6 Units/L (7-52); Albumin 3.6 g/dL (3.5-5.7); Albumin/Globulin Ratio 1.6 (1.1-2.2); Alkaline Phosphatase 130 Units/L (34-104); Aspartate Amino Transferase 15 Units/L (13-39); BUN/Creatinine Ratio 14 (6-26); Bilirubin,Total 0.4 mg/dL (0.3-1.0); Blood Urea Nitrogen 10 mg/dL (8-23); Calcium 8.8 mg/dL (8.6-10.3); Carbon Dioxide 27 mEq/L (23-29); Chloride 101 mEq/L (98-107); Globulin 2.2 g/dL (2.4-3.5); Glucose 90 mg/dL (70-105); Osmolality,Calculated 271 (280-300); Potassium 3.9 mEq/L (3.5-5.1); Sodium 131 mEq/L (136-145); Total Protein 5.8 g/dL (6.4-8.9); eGFR For African Americans > 60 (> 60); eGFR For Non-African Americans > 60 (> 60)
--- NOTE | 2017-10-19 14:07 | Anesthesia Evaluation PreOp ---
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 TENDER History: Denies Any Significant HX Other Medical History: Denies Any Significant HX Anesthesia History: No Prior Anesthetic Complications, Past Anesthesia (left ROSAS , closed reduction left hip, B[place]) : No Alcohol Use: none Drug use: none Medications and Allergies Amitriptyline [Elavil] 25 mg PO HS 09/14/17 [History] Diclofenac Sodium [Voltaren] 50 mg PO BID 09/14/17 [History] Escitalopram [Lexapro] 10 mg PO DAILY 09/14/17 [History] Esomeprazole Magnesium [Nexium] 40 mg PO DAILY 09/14/17 [History] Gabapentin [Neurontin] 400 mg PO TID 09/14/17 [History] Ipratropium/Albuterol Sulfate [Combivent Respimat Inhal [place]] 2 puff IH Q6H PRN 09/14/17 [History] Primidone [Mysoline] 50 mg PO BID 09/14/17 [History] Ranitidine HCl [Zantac] 300 mg PO DAILY 09/14/17 [History] Rizatriptan Benzoate [Maxalt] 10 mg PO AD PRN 09/14/17 [History] Tizanidine HCl 4 mg PO HS 09/14/17 [History] Topiramate [Topamax] 100 mg PO BID 09/14/17 [History] Furosemide [Lasix] 20 mg PO DAILY PRN 10/02/17 [History] Carboxymethylcellulose Sodium [Refresh Plus] 1 drop OP DAILY PRN 10/19/17 [ History] HYDROcodone/Acet 5/325 mg [[place] 5-325 mg] 1 tab PO Q6H PRN 10/19/17 [History] Naproxen Sodium [Aleve] 220 mg PO DAILY PRN 10/19/17 [History] 3 Allergy/AdvReac Type Severity Reaction Status Date / Time aspirin [ASA] AdvReac Vomiting Verified 10/19/17 11:37 baclofen AdvReac Vomiting Verified 10/19/17 11:37 simvastatin AdvReac Vomiting Verified 10/19/17 11:37 - Meds/Allergy Pre-op Review Medications Reviewed: Yes Allergies Reviewed: Yes Beta Blockers on Current Med List: No Anesthesia Results - Labs 10/19/17 12:18 Anesthesia Exam Selected Entries 10/19/17 10:59 10/19/17 11:25 Temperature 97.9 F Pulse Rate 70 Respiratory Rate 18 Blood Pressure 114/67 O2 Sat by Pulse Oximetry 98 Oxygen Delivery Method Room Air Weight: 75kg NPO (# of Hours): 8 - HEENT Pupil (Motor): EOMI Mallampati: III Teeth: Edentulous Oral Opening: Greater than 3 - DRAWING BOX TENDER LOC: Oriented DRAWING BOX TENDER Motor: Normal RUE, Normal LUE, Normal RLE, Normal LLE, Normal Face DRAWING BOX TENDER Sensory: Normal: RUE, LUE, RLE, LLE, Face - Cardiac Rhythm: Regular Murmur: None - Pulmonary Breath Sounds: bilateral Clear Respiratory Effort: Symmetrical Anesthesia Assess/Plan ASA Score: 3 Modified [place] Scale for Level of Consciousness: Cooperative, oriented, and tranquil Monitoring Plan: Standard Monitors Recovery Plan: PACU (agrees to GA)
--- NOTE | 2017-10-19 14:13 | Discharge Summary ---
Orders not resulted at time of discharge: Pending orders 10/19/17 12:18 Activated Partial Thrombo Time [COAG] Stat Prothrombin Time INR [COAG] Stat 10/19/17 12:58 Complete Blood Count [HEME] Stat Date of Encounter: 10/26/17 Time of Encounter: 10:36 - Discharge Diagnosis (1) Status post total hip replacement, left Priority: Primary Status: Chronic (2) COPD (chronic obstructive pulmonary disease) Priority: Secondary Status: Chronic Qualifiers: COPD type: unspecified COPD Qualified Code(s): J44.9 - Chronic obstructive pulmonary disease, unspecified (3) Tobacco use Priority: Secondary Status: Chronic (4) HTN (hypertension) Priority: Secondary Status: Chronic Qualifiers: Hypertension type: essential hypertension Qualified Code(s): I10 - Essential (primary) hypertension (5) KRAIG (obstructive sleep apnea) Priority: Secondary Status: Chronic (6) Aspirin allergy Priority: Secondary Status: Chronic (7) Failed total hip arthroplasty with dislocation Priority: Primary Status: Acute Qualifiers: Encounter type: initial encounter Qualified Code(s): T84.028A - Dislocation of other internal joint prosthesis, initial encounter; Z96.649 - Presence of unspecified artificial hip joint; Z96.649 - Presence of unspecified artificial hip joint - Hospital Course Hospital course: Ms. Bailon is a 62 year old female Status post close reduction dislocated right total hip. Discharge stable condition. - Time Spent with Patient Total time spent providing and/or coordinating discharge services: - Discharge Medications Home Medications: Amitriptyline [Elavil] 25 mg PO HS 09/14/17 [History] Diclofenac Sodium [Voltaren] 50 mg PO BID 09/14/17 [History] Escitalopram [Lexapro] 10 mg PO DAILY 09/14/17 [History] Esomeprazole Magnesium [Nexium] 40 mg PO DAILY 09/14/17 [History] Gabapentin [Neurontin] 400 mg PO TID 09/14/17 [History] Ipratropium/Albuterol Sulfate [Combivent Respimat Inhal [place]] 2 puff IH Q6H PRN 09/14/17 [History] Primidone [Mysoline] 50 mg PO BID 09/14/17 [History] Ranitidine HCl [Zantac] 300 mg PO DAILY 09/14/17 [History] Rizatriptan Benzoate [Maxalt] 10 mg PO AD PRN 09/14/17 [History] Tizanidine HCl 4 mg PO HS 09/14/17 [History] Topiramate [Topamax] 100 mg PO BID 09/14/17 [History] Furosemide [Lasix] 20 mg PO DAILY PRN 10/02/17 [History] Carboxymethylcellulose Sodium [Refresh Plus] 1 drop OP DAILY PRN 10/19/17 [ History] HYDROcodone/Acet 5/325 mg [[place] 5-325 mg] 1 tab PO Q6H PRN 10/19/17 [History] Naproxen Sodium [Aleve] 220 mg PO DAILY PRN 10/19/17 [History] OxyCODONE Immed Rel [Roxicodone 5 MG] 5 mg PO Q6H PRN 7 Days #28 tablet [Rx] Rivaroxaban [Xarelto] 10 mg PO 1700 #12 tablet 10/25/17 [Rx] Allergies/Adverse Reactions: 3 Allergy/AdvReac Type Severity Reaction Status Date / Time aspirin [ASA] AdvReac Vomiting Verified 10/19/17 11:37 baclofen AdvReac Vomiting Verified 10/19/17 11:37 simvastatin AdvReac Vomiting Verified 10/19/17 11:37 Date of admission: 10/19/17 08:47 Primary care physician: Giselle Henry CNP Consults: 10/19/17 11:59 Consult to Occupational Therapy [CONS] Routine Comment: Evaluate, develop and implement POC Reason for Consult: s/p Left hip Dislocation, Closed reduction planned for 10/19 Does patient have active BEDREST order?: No Is patient medically & hemodynamically stable?: Yes Patient assessed for mobility or mobilized this visit?: Yes Consult to Physical Therapy [CONS] Routine Comment: Evaluate, develop and implement POC Reason for Consult: s/p Left hip Dislocation, Closed reduction planned for 10/19 Does patient have active BEDREST order?: No Is patient medically & hemodynamically stable?: Yes Patient assessed for mobility or mobilized this visit?: Yes Consult to Souvenir Assembler [CONS] Routine Reason for SW Consult: s/p hip dislocation Labs on day of discharge: Labs from last 24 hours 10/19/17 10/19/17 12:18 12:18 Sodium 131 L Potassium 3.9 Chloride 101 Carbon Dioxide 27 BUN 10 Creatinine 0.73 Est GFR ( Amer) > 60 Est GFR (Non-Af Amer) > 60 BUN/Creatinine Ratio 14 Glucose 90 Calculated Osmolality 271 L Calcium 8.8 Total Bilirubin 0.4 AST 15 ALT 6 L Alkaline Phosphatase 130 H Serum Total Protein 5.8 L Albumin 3.6 Globulin 2.2 L Albumin/Globulin Ratio 1.6 Specimen Rejected MCV Delta - Impressions ITS Impressions Hip X-Ray 10/19/17 09:00 IMPRESSION: Superior dislocation of left total hip arthroplasty. No fracture identified. D/ / Mj Quezada / Mj Quezada Interpreting Provider: Mj Quezada - Patient Status Disposition: Home, Self-Care Condition: Good Functional capacity at discharge: uses cane/walker Overall status at discharge: patient is progressing back to baseline - Discharge Instructions Instructions: Chronic Obstructive Pulmonary Disease (DC), Hip Dislocation (GEN) Follow Up With: Giselle Henry, [employer] [Primary Care Provider] - (patient has to call for her appointment per PCP office...)
[2017-10-19] MEDS ORDERED: *HR* Propofol 200 MG/20 ML VIAL IVP ONE (14:48)
[2017-10-19] MEDS ORDERED: *HR* FentaNYL (PF) 250 MCG/5 ML VIAL ONE (14:48)
--- NOTE | 2017-10-19 15:14 | Orthopedic Operative Note ---
Date of procedure: 10/19/17 Pre-op diagnosis: Dislocation left total hip Post-op diagnosis: same Procedure: Procedure: Closed reduction left hip Estimated blood loss 0 Patient brought to the operating room after general anesthesia was administered a closed reduction was performed of the left hip. Reduction was confirmed with spot x-ray AP left hip. Patient was placed in a hip abduction brace and transferred to recovery room in stable condition. Anesthesia: GETA Surgeon: Lalo Salinas Was there an accounting assistant present: No Estimated blood loss (cc): 0 Condition: stable Disposition: PACU
[2017-10-19] MEDS ORDERED: Artificial Tears SOLN 15 ML BOTTLE OP PRN (15:42)
[2017-10-19] MEDS ORDERED: Ondansetron 4 MG/2 ML VIAL IVP PRN (15:42)
[2017-10-19] MEDS ORDERED: RIZATRIPTAN BENZOATE PO PRN (15:42)
[2017-10-19] MEDS ORDERED: Furosemide 20 MG TABLET PO PRN (15:42)
[2017-10-19] MEDS ORDERED: Temazepam 15 MG CAPSULE PO PRN (15:42)
[2017-10-19] MEDS ORDERED: MOM Conc 10 ML UD.LIQ PO PRN (15:42)
[2017-10-19] MEDS ORDERED: Ipratropium/Albuterol Neb 3 ML IH PRN (15:42)
[2017-10-19] MEDS ORDERED: Sennosides 8.6 MG TABLET PO PRN (15:42)
[2017-10-19] MEDS: 0.9 % Sodium Chloride 1,000 ML IVC SCH (16:14)
[2017-10-19] MEDS: Ringers Solution, Lactated 1,000 ML IVC SCH (16:20)
[2017-10-19] MEDS: Ascorbic Acid 500 MG TABLET PO SCH (16:21)
[2017-10-19] MEDS: Gabapentin 400 MG CAPSULE PO SCH ×2 (16:21→21:52)
[2017-10-19] MEDS ORDERED: tiZANidine 4 MG TABLET PO SCH (21:00)
[2017-10-19] MEDS: Primidone 50 MG TABLET PO SCH (21:52)
[2017-10-19] MEDS: *HR* OxyCODONE Immed Rel 5 MG TABLET PO PRN (21:55)
[2017-10-19] MEDS: Topiramate 100 MG TABLET PO SCH (21:55)
[2017-10-20] MEDS: Ringers Solution, Lactated 1,000 ML IVC SCH (00:45)
[2017-10-20] MEDS: *HR* HYDROcodone/Acet 5/325 mg TABLET PO PRN ×2 (00:46→17:20)
[2017-10-20] MEDS: 0.9 % Sodium Chloride 1,000 ML IVC SCH (06:05)
[2017-10-20] MEDS: *HR* OxyCODONE Immed Rel 5 MG TABLET PO PRN ×2 (06:13→12:16)
[2017-10-20 07:54] LABS: Hematocrit 30.4 % (35.3-44.9); Hemoglobin 10.3 g/dL (11.5-15.4)
[2017-10-20 07:58] LABS: BUN/Creatinine Ratio 12 (6-26); Blood Urea Nitrogen 8 mg/dL (8-23); Calcium 8.3 mg/dL (8.6-10.3); Carbon Dioxide 23 mEq/L (23-29); Chloride 100 mEq/L (98-107); Glucose 110 mg/dL (70-105); Osmolality,Calculated 273 (280-300); Potassium 3.3 mEq/L (3.5-5.1); Sodium 132 mEq/L (136-145); eGFR For African Americans > 60 (> 60); eGFR For Non-African Americans > 60 (> 60)
[2017-10-20] MEDS ORDERED: Famotidine 20 MG TABLET PO SCH (09:00)
[2017-10-20] MEDS ORDERED: Multivit/Ca/Min/Fe/FA 1 TAB TABLET PO SCH (09:00)
[2017-10-20] MEDS: Gabapentin 400 MG CAPSULE PO SCH ×2 (09:01→17:20)
[2017-10-20] MEDS: Topiramate 100 MG TABLET PO SCH (09:01)
[2017-10-20] MEDS: Ascorbic Acid 500 MG TABLET PO SCH ×2 (09:02→17:20)
[2017-10-20] MEDS: Primidone 50 MG TABLET PO SCH (09:02)
[2017-10-20 15:37] VITALS: BP 118/70
--- NOTE | 2017-10-20 17:24 | Physician Discharge Referral ---
Home Health/Hosp Referral Info Transfer to: Home Health Attending Provider: Brad - Diagnosis (1) Status post total hip replacement, left Priority: Secondary Status: Chronic (2) Closed dislocation of left hip Priority: Primary Status: Acute - Respiratory Orders Smoking Cessation: Smoking cessation has been advised. For more information, call the [place] Tobacco Quit Line at 5-584-CZEU-NOW. - Diet/Nutrition Diet/Nutrition Orders: Regular - Activity Activity Orders: Up ad leda, Ambulate, Chair, Walker - Services Needed Following services are medically necessary services: Nursing, Physical Therapy, Occupational Therapy Home Care Orders: Total Hip replacement Precautions Apply cold therapy 3-6x/day for 20 minutes at a time. Encourage ambulation throughout the day and incentive spirometer 10x/hour. Elevate affected extremity as tolerated. Brace: Wear hip abduction pillow when laying/sleeping - Transfer Medications Prescriptions: OxyCODONE Immed Rel [Roxicodone 5 MG] 5 mg PO Q4HR PRN 4 Days #12 tablet PRN Reason: Pain Home Medications: Amitriptyline [Elavil] 25 mg PO HS 09/14/17 [History] Diclofenac Sodium [Voltaren] 50 mg PO BID 09/14/17 [History] Escitalopram [Lexapro] 10 mg PO DAILY 09/14/17 [History] Esomeprazole Magnesium [Nexium] 40 mg PO DAILY 09/14/17 [History] Gabapentin [Neurontin] 400 mg PO TID 09/14/17 [History] Ipratropium/Albuterol Sulfate [Combivent Respimat Inhal [place]] 2 puff IH Q6H PRN 09/14/17 [History] Primidone [Mysoline] 50 mg PO BID 09/14/17 [History] Ranitidine HCl [Zantac] 300 mg PO DAILY 09/14/17 [History] Rizatriptan Benzoate [Maxalt] 10 mg PO AD PRN 09/14/17 [History] Tizanidine HCl 4 mg PO HS 09/14/17 [History] Topiramate [Topamax] 100 mg PO BID 09/14/17 [History] Furosemide [Lasix] 20 mg PO DAILY PRN 10/02/17 [History] Carboxymethylcellulose Sodium [Refresh Plus] 1 drop OP DAILY PRN 10/19/17 [ History] HYDROcodone/Acet 5/325 mg [[place] 5-325 mg] 1 tab PO Q6H PRN 10/19/17 [History] Naproxen Sodium [Aleve] 220 mg PO DAILY PRN 10/19/17 [History] OxyCODONE Immed Rel [Roxicodone 5 MG] 5 mg PO Q4HR PRN 4 Days #12 tablet [Rx] Allergies/Adverse Reactions: 3 Allergy/AdvReac Type Severity Reaction Status Date / Time aspirin [ASA] AdvReac Vomiting Verified 10/19/17 11:37 baclofen AdvReac Vomiting Verified 10/19/17 11:37 simvastatin AdvReac Vomiting Verified 10/19/17 11:37 Certification: Further, I certify that my clinical findings support that this patient is homebound (i.e. absences from home require considerable and taxing effort and are for medical reasons or yazidi services or infrequently or short duration when for other reasons) because: Homebound Reason: Post-surgery restriction and or conditions limit ability to leave home Attestation: My signature below is to certify that this patient is under my care and that I, or nurse practitioner, or a physician compounding assistant working with me, has a face-to- face encounter with this patient.
== END 2017-10-20 18:30 | disposition home or self-care (01) ==
LOC: 2ANU
PROVIDERS: ADMIT Orthopaedic Surgery Hand Surgery; ATTEND Orthopaedic Surgery Hand Surgery

== ENCOUNTER 2017-10-26 12:09 | Inpatient (IN) ==
--- NOTE | 2017-10-25 16:59 | Discharge Summary ---
<Cecy Gant - Last Filed: 10/25/17 16:54> Date of Encounter: 10/25/17 - Discharge Diagnosis (1) Status post revision of total hip replacement Priority: Primary Status: Acute (2) Failed total hip arthroplasty with dislocation Priority: Primary Status: Acute Qualifiers: Encounter type: initial encounter Qualified Code(s): T84.028A - Dislocation of other internal joint prosthesis, initial encounter; Z96.649 - Presence of unspecified artificial hip joint; Z96.649 - Presence of unspecified artificial hip joint (3) COPD (chronic obstructive pulmonary disease) Priority: Secondary Status: Chronic Qualifiers: COPD type: unspecified COPD (4) Tobacco use Priority: Secondary Status: Chronic (5) HTN (hypertension) Priority: Secondary Status: Chronic Qualifiers: Hypertension type: essential hypertension (6) KRAIG (obstructive sleep apnea) Priority: Secondary Status: Chronic (7) Aspirin allergy Priority: Secondary Status: Chronic - Hospital Course Hospital course: Ms. Bailon is a 62 year old female - Time Spent with Patient Total time spent providing and/or coordinating discharge services: - Discharge Medications Prescriptions: Nicotine Patch [Nicoderm] 21 mg TD DAILY #20 patch.[email or web address] Home Medications: Amitriptyline [Elavil] 25 mg PO HS 09/14/17 [History] Diclofenac Sodium [Voltaren] 50 mg PO BID 09/14/17 [History] Escitalopram [Lexapro] 10 mg PO DAILY 09/14/17 [History] Esomeprazole Magnesium [Nexium] 40 mg PO DAILY 09/14/17 [History] Gabapentin [Neurontin] 400 mg PO TID 09/14/17 [History] Ipratropium/Albuterol Sulfate [Combivent Respimat Inhal [place]] 2 puff IH Q6H PRN 09/14/17 [History] Primidone [Mysoline] 50 mg PO BID 09/14/17 [History] Ranitidine HCl [Zantac] 300 mg PO DAILY 09/14/17 [History] Rizatriptan Benzoate [Maxalt] 10 mg PO AD PRN 09/14/17 [History] Tizanidine HCl 4 mg PO HS 09/14/17 [History] Topiramate [Topamax] 100 mg PO BID 09/14/17 [History] Furosemide [Lasix] 20 mg PO DAILY PRN 10/02/17 [History] Carboxymethylcellulose Sodium [Refresh Plus] 1 drop OP DAILY PRN 10/19/17 [ History] OxyCODONE Immed Rel [Roxicodone 5 MG] 5 mg PO Q6H PRN 7 Days #28 tablet [Rx] Rivaroxaban [Xarelto] 10 mg PO 1700 #12 tablet 10/25/17 [Rx] Albuterol Neb [Proventil Neb] 2.5 mg IH Q8H PRN 10/26/17 [History] Nicotine Patch [Nicoderm] 21 mg TD DAILY 10/26/17 [History] Oxycodone HCl 5 mg PO Q6H PRN 10/26/17 [History] Nicotine Patch [Nicoderm] 21 mg TD DAILY #20 patch.td24 10/28/17 [Rx] Allergies/Adverse Reactions: 3 Allergy/AdvReac Type Severity Reaction Status Date / Time aspirin [ASA] AdvReac Vomiting Verified 10/26/17 13:49 baclofen AdvReac Vomiting Verified 10/26/17 13:49 simvastatin AdvReac Vomiting Verified 10/26/17 13:49 Primary care physician: iGselle Henry CNP - Patient Status Disposition: Home Health Service Condition: Good - Discharge Instructions Follow Up With: Giselle Henry CNP [Primary Care Provider] - <Lalo Salinas - Last Filed: 10/28/17 06:43> Orders not resulted at time of discharge: Pending orders 10/26/17 00:01 XR hip complete LT [XR] Routine H/H [Hemoglobin and Hematocrit] [HEME] Routine Date of Encounter: 10/28/17 Time of Encounter: 06:42 - Discharge Diagnosis (1) Status post total hip replacement, left Priority: Primary Status: Chronic (2) COPD (chronic obstructive pulmonary disease) Priority: Secondary Status: Chronic Qualifiers: COPD type: unspecified COPD Qualified Code(s): J44.9 - Chronic obstructive pulmonary disease, unspecified (3) Tobacco use Priority: Secondary Status: Chronic (4) HTN (hypertension) Status: Chronic Qualifiers: Hypertension type: essential hypertension Qualified Code(s): I10 - Essential (primary) hypertension (5) KRAIG (obstructive sleep apnea) Priority: Secondary Status: Chronic (6) Aspirin allergy Priority: Secondary Status: Chronic (7) DVT prophylaxis Priority: Secondary Status: Acute (8) Failed total hip arthroplasty with dislocation Priority: Primary Status: Acute Qualifiers: Encounter type: initial encounter Qualified Code(s): T84.028A - Dislocation of other internal joint prosthesis, initial encounter; Z96.649 - Presence of unspecified artificial hip joint; Z96.649 - Presence of unspecified artificial hip joint (9) Loosening of prosthetic joint without infection Priority: Primary Status: Acute (10) Acute blood loss anemia Priority: Primary Status: Acute - Hospital Course Hospital course: Ms. Bailon is a 62 year old female Status post revision left hip. Patient with hematocrit 24 transfuse 2 units, The patient had an uneventful postoperative course. They received antibiotics and physical therapy and were discharged in stable condition. There will follow -up in the office in 2 weeks. - Time Spent with Patient Total time spent providing and/or coordinating discharge services: Primary care physician: Giselle Henry CNP - Patient Status Functional capacity at discharge: uses cane/walker Overall status at discharge: patient is progressing back to baseline
[2017-10-26] MEDS ORDERED: Albuterol 2.5 MG/3 ML NEBULIZER IH ONE (12:48)
[2017-10-26] MEDS ORDERED: Lidocaine -MPF 1% 2 ML VIAL ID ONE (12:48)
[2017-10-26] MEDS ORDERED: Ringers Solution, Lactated 1,000 ML IVC SCH ×2 (13:00→17:34)
[2017-10-26] MEDS ORDERED: Acetaminophen IV 1,000 MG/100 ML INFUS..BTL IVPB ONE (13:44)
--- NOTE | 2017-10-26 13:47 | Anesthesia Evaluation PreOp ---
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 (chronic low back pain, anxiety, depression, neuropathy) Other Medical History: Renal (kidney stone), GERD, Other (hiatal hernia) Anesthesia History: No Prior Anesthetic Complications, Past Anesthesia (BECKIE) Alcohol Use: none Drug use: none Medications and Allergies Amitriptyline [Elavil] 25 mg PO HS 09/14/17 [History] Diclofenac Sodium [Voltaren] 50 mg PO BID 09/14/17 [History] Escitalopram [Lexapro] 10 mg PO DAILY 09/14/17 [History] Esomeprazole Magnesium [Nexium] 40 mg PO DAILY 09/14/17 [History] Gabapentin [Neurontin] 400 mg PO TID 09/14/17 [History] Ipratropium/Albuterol Sulfate [Combivent Respimat Inhal [place]] 2 puff IH Q6H PRN 09/14/17 [History] Primidone [Mysoline] 50 mg PO BID 09/14/17 [History] Ranitidine HCl [Zantac] 300 mg PO DAILY 09/14/17 [History] Rizatriptan Benzoate [Maxalt] 10 mg PO AD PRN 09/14/17 [History] Tizanidine HCl 4 mg PO HS 09/14/17 [History] Topiramate [Topamax] 100 mg PO BID 09/14/17 [History] Furosemide [Lasix] 20 mg PO DAILY PRN 10/02/17 [History] Carboxymethylcellulose Sodium [Refresh Plus] 1 drop OP DAILY PRN 10/19/17 [ History] HYDROcodone/Acet 5/325 mg [Java 5-325 mg] 1 tab PO Q6H PRN 10/19/17 [History] Naproxen Sodium [Aleve] 220 mg PO DAILY PRN 10/19/17 [History] OxyCODONE Immed Rel [Roxicodone 5 MG] 5 mg PO Q6H PRN 7 Days #28 tablet [Rx] Rivaroxaban [Xarelto] 10 mg PO 1700 #12 tablet 10/25/17 [Rx] 3 Allergy/AdvReac Type Severity Reaction Status Date / Time aspirin [ASA] AdvReac Vomiting Verified 10/26/17 13:49 baclofen AdvReac Vomiting Verified 10/26/17 13:49 simvastatin AdvReac Vomiting Verified 10/26/17 13:49 - Meds/Allergy Pre-op Review Medications Reviewed: Yes Allergies Reviewed: Yes Beta Blockers on Current Med List: No Anesthesia Results - Labs Laboratory Tests 08/23/14 10/03/17 10/19/17 13:24 04:09 12:18 WBC 6.4 Hgb Hct Plt Count 370 PT 11.9 INR 1.1 APTT 27.4 Sodium Potassium Chloride Carbon Dioxide BUN Creatinine Glucose Est Mean Plasma Glucose 108 Hemoglobin A1c 5.4 10/20/17 10/20/17 06:39 06:39 WBC Hgb 10.3 L Hct 30.4 L Plt Count PT INR APTT Sodium 132 L Potassium 3.3 L Chloride 100 Carbon Dioxide 23 BUN 8 Creatinine 0.67 Glucose 110 H Est Mean Plasma Glucose Hemoglobin A1c Anesthesia Exam O2 Sat Height 1.7 m Height 1.7 m Height 1.7 m Weight 72.575 kg Weight 72.575 kg Weight 72.575 kg O2 Sat by Pulse Oximetry 97 O2 Sat by Pulse Oximetry 97 Vital Signs Temp Pulse Resp BP Pulse Ox 97.8 F 86 18 125/56 97 10/26/17 12:27 10/26/17 12:27 10/26/17 12:27 10/26/17 12:27 10/26/17 12:27 NPO (# of Hours): >8 Pain Scale: 0 Pain Scale Used: Numeric (1 - 10) - HEENT Pupil (Motor): Pupils equal, EOMI Mallampati: III Teeth: Edentulous Oral Opening: Greater than 3 - STEEL HEATER LOC: Oriented STEEL HEATER Motor: Normal RUE, Normal LUE, Normal RLE, Normal LLE, Normal Face STEEL HEATER Sensory: Normal: RUE, LUE, RLE, LLE, Face - Cardiac Rhythm: Regular - Pulmonary Breath Sounds: bilateral Clear Respiratory Effort: Symmetrical Anesthesia Assess/Plan ASA Score: 3 Modified [place] Scale for Level of Consciousness: Cooperative, oriented, and tranquil Anesthetic Plan: General, Regional (L fascia iliaca nn block) Monitoring Plan: Standard Monitors Recovery Plan: PACU
--- NOTE | 2017-10-26 14:07 | History & Physical Report ---
Date of Encounter: 10/26/17 Time of Encounter: 14:07 24 Hour HP Update - Instructions Instructions: If the History and Physical is less than 30 days old and was completed prior to A.M. admission and or procedure and has NOT been updated on calendar day of procedure please complete this update prior to performing procedure. - Update Patient reports changes in Medical Condition: No Changes in examination, assessment, or condition: No Changes in Medication: No Preop tests/diagnostics Reviewed: Yes Surgery Remains Indicated: Yes Consent for Planned Operative Procedure(s) Verified: Yes - Pre-Operative Checklist Preoperative Checklist Indicated: No Prophylactic Antibiotic Ordered: Yes Is VTE Prophylaxis Indicated?: Yes
[2017-10-26] MEDS ORDERED: *HR* FentaNYL (PF) 100 MCG/2 ML VIAL ONE ×2 (14:44→16:37)
[2017-10-26] MEDS ORDERED: *HR* Midazolam HCl 2 MG/2 ML VIAL ONE (14:44)
[2017-10-26] MEDS ORDERED: Ethanol\\Acetic Acid\\Na Ace\\Ben 1,000 ML IRRIG.SOLN IR ONE (14:57)
--- NOTE | 2017-10-26 15:03 | Anesthesia Procedures ---
Date of Encounter: 10/26/17 Time of Encounter: 15:01 Procedures: Anesthesia - Nerve Block Procedure Date: 10/26/17 Time: 15:01 Allergies/Adv Reactions: asa, baclofen, simvastatin Surgical Procedure: left ROSAS rev Checklist: Correct Patient Identifier, Correct procedure, History checked Correct side: Left Blood Thinner: No Monitor Applied: EKG, BP, Pulse Oximetry Supplemental Oxygen via Nasal Cannula (L/min): 2 Sedation: Versed (mg): 2 Sedation: Fentanyl (mcg): 100 Indication: Post Op Analgesia Pre-op Neuro Deficits: No Block Type: Other (fascia iliaca) Catheter placed: No Sterile Technique: Yes Ultrasound used: Yes Anatomy identified: Yes Visual spread of Local: Yes Neuro Stimulation: No Blood on Needle Aspiration: No Smooth Injection of Local: Yes Pain with Injection of Local: No Prep: Chlorhexadine Needle: 21 x 100 mm Stimuplex (echogenic) Local: Other (0.25% bupivacaine + 10mg decadron) Volume (cc): 60 Number of Attempts: 1 Complications: None/effective block Vitals: Vital Signs/O2 Sat/Glucose, Most Recent Temp Pulse Resp BP Pulse Ox 97.8 F 76 18 124/86 98 10/26/17 12:27 10/26/17 14:46 10/26/17 14:46 10/26/17 14:46 10/26/17 14:46
--- NOTE | 2017-10-26 15:17 | Physician Discharge Referral ---
Home Health/Hosp Referral Info Transfer to: Home Health Provider in Charge Post Discharge: PCP - Diagnosis (1) Status post revision of total hip replacement Priority: Primary Status: Acute (2) Failed total hip arthroplasty with dislocation Priority: Primary Status: Acute (3) COPD (chronic obstructive pulmonary disease) Status: Chronic (4) Tobacco use Status: Chronic (5) HTN (hypertension) Status: Chronic (6) KRAIG (obstructive sleep apnea) Status: Chronic (7) Aspirin allergy Status: Chronic - Respiratory Orders None Smoking Cessation: Smoking cessation has been advised. For more information, call the [place] Tobacco Quit Line at 7-366-UYOH-NOW. - Diet/Nutrition Diet/Nutrition Orders: Regular - Activity Activity Orders: Up ad leda, Ambulate, Chair, Walker - Services Needed Following services are medically necessary services: Nursing, Home Health Aide, Physical Therapy, Occupational Therapy Home Care Orders: Total Hip replacement Precautions Apply cold therapy 3-6x/day for 20 minutes at a time. Encourage ambulation throughout the day and incentive spirometer 10x/hour. Elevate affected extremity as tolerated. Brace: Wear hip abduction pillow when laying/sleeping Opsite/dane and zipline dressing in place. Remove only if >75% saturation. AT that point place replacement dressing to incision. - Transfer Medications Prescriptions: Rivaroxaban [Xarelto] 10 mg PO 1700 #12 tablet Home Medications: Amitriptyline [Elavil] 25 mg PO HS 09/14/17 [History] Diclofenac Sodium [Voltaren] 50 mg PO BID 09/14/17 [History] Escitalopram [Lexapro] 10 mg PO DAILY 09/14/17 [History] Esomeprazole Magnesium [Nexium] 40 mg PO DAILY 09/14/17 [History] Gabapentin [Neurontin] 400 mg PO TID 09/14/17 [History] Ipratropium/Albuterol Sulfate [Combivent Respimat Inhal [place]] 2 puff IH Q6H PRN 09/14/17 [History] Primidone [Mysoline] 50 mg PO BID 09/14/17 [History] Ranitidine HCl [Zantac] 300 mg PO DAILY 09/14/17 [History] Rizatriptan Benzoate [Maxalt] 10 mg PO AD PRN 09/14/17 [History] Tizanidine HCl 4 mg PO HS 09/14/17 [History] Topiramate [Topamax] 100 mg PO BID 09/14/17 [History] Furosemide [Lasix] 20 mg PO DAILY PRN 10/02/17 [History] Carboxymethylcellulose Sodium [Refresh Plus] 1 drop OP DAILY PRN 10/19/17 [ History] OxyCODONE Immed Rel [Roxicodone 5 MG] 5 mg PO Q6H PRN 7 Days #28 tablet [Rx] Rivaroxaban [Xarelto] 10 mg PO 1700 #12 tablet 10/25/17 [Rx] Albuterol Neb [Proventil Neb] 2.5 mg IH Q8H PRN 10/26/17 [History] Nicotine Patch [Nicoderm] 21 mg TD DAILY 10/26/17 [History] Oxycodone HCl 5 mg PO Q6H PRN 10/26/17 [History] Allergies/Adverse Reactions: 3 Allergy/AdvReac Type Severity Reaction Status Date / Time aspirin [ASA] AdvReac Vomiting Verified 10/26/17 13:49 baclofen AdvReac Vomiting Verified 10/26/17 13:49 simvastatin AdvReac Vomiting Verified 10/26/17 13:49 Certification: Further, I certify that my clinical findings support that this patient is homebound (i.e. absences from home require considerable and taxing effort and are for medical reasons or scientologist services or infrequently or short duration when for other reasons) because: Homebound Reason: Post-surgery restriction and or conditions limit ability to leave home Attestation: My signature below is to certify that this patient is under my care and that I, or nurse practitioner, or a physician's assistant grocery store manager working with me, has a face-to -face encounter with this patient.
[2017-10-26] MEDS ORDERED: Ondansetron 4 MG/2 ML VIAL ONE (15:39)
[2017-10-26] MEDS ORDERED: Ondansetron 4 MG/2 ML VIAL IVP PRN ×2 (15:55→17:34)
[2017-10-26] MEDS ORDERED: *HR* HYDROmorphone 2 MG TABLET PO PRN (15:55)
[2017-10-26] MEDS ORDERED: *HR* OxyCODONE Immed Rel 5 MG TABLET PO PRN (15:55)
[2017-10-26] MEDS ORDERED: *HR* Labetalol 20 MG/4 ML SYRINGE IVP PRN (15:55)
[2017-10-26] MEDS ORDERED: *HR* Midazolam HCl 2 MG/2 ML VIAL IVP PRN (15:55)
[2017-10-26] MEDS ORDERED: Dexamethasone 4 MG/ML VIAL ONE (16:00)
--- NOTE | 2017-10-26 16:05 | Orthopedic Operative Note ---
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 Hailee +0 head with Veronica 17 x 1 50 confucianist modular stem with 25+10 body Procedural Notes: Loose femoral stem. With subsidence, dissociation of Veronica from femoral head component. Operative procedure: The patient was brought to the operating room and placed on the operating room table. After general anesthesia was administered the patient was placed in the lateral decubitus position with the operative leg up. All pressure points were padded appropriately and the head was stabilized in the neutral position. The operative extremity was prepped and draped in the sterile surgical fashion patient received IV antibiotic prior to skin incision. A standard posterior approach is made to the operative hip, through the old incision. The incision was made through the skin and subcutaneous tissue hemostasis was obtained with Bovie cautery. Using careful sharp dissection the fascia was identified and incised. Cultures were obtained at the level hip joint, normal joint fluid was encountered. Hip was brought into internal rotation. Patient noted to have a dissociation of the poly-component prior to internal rotation from the femoral head. Femoral component was removed easily without incident. The femur was reamed distally up to a size 17 x 150, the stem was impacted in place. Trial reduction with a 25+10 body revealed the hip to be relocatable. The real 25 mm +10 body was impacted in place in 20 degrees of anteversion trial reduction revealed excellent stability with a +0 metal head with the appropriate poly-. The trials were removed and the real implants were impacted in place. The hip was reduced, patient had apparent equal leg lengths. The hip had excellent stability with forward flexion to 90 degrees adduction of 30 degrees and internal rotation of 60 degrees. The hip had no shuck. The hips after 2 minutes with a antibacterial solution. It was irrigated out with 2 L of pulse irrigation. Fascia was closed with a running #2 PDS suture. The deep tissue was irrigated and closed deep with #1 PDS suture superficially with 0 PDS suture and skin was closed with Dermabond and skin dane. The patient was placed in a sterile dressing and abduction pillow. The patient was extubated and transferred to the recovery room in stable condition. Anesthesia: GETA Surgeon: Lalo Salinas Was there an assistant paralegal present: Yes Cafe Team Member: Cecy Gant Estimated blood loss (cc): 200 Condition: stable Disposition: PACU
[2017-10-26] MEDS ORDERED: *HR* Succinylcholine 200 MG/10 ML VIAL IVP ONE (16:30)
[2017-10-26] MEDS ORDERED: *HR* Propofol 200 MG/20 ML VIAL IVP ONE (16:30)
[2017-10-26] MEDS ORDERED: Lidocaine -MPF 2% 2 ML VIAL ONE (16:30)
[2017-10-26] MEDS ORDERED: Lidocaine -MPF 4% 5 ML AMPUL ONE (16:30)
[2017-10-26] MEDS ORDERED: Ketorolac 30 MG/ML VIAL ONE (16:36)
[2017-10-26] MEDS: MORPHINE SUL Oral CONC 10 MG/0.5 ML ORAL.SYG SL PRN ×2 (16:55→17:06)
[2017-10-26 17:24] LABS: Hematocrit 33.3 % (35.3-44.9); Hemoglobin 11.2 g/dL (11.5-15.4)
[2017-10-26] MEDS ORDERED: *HR* OxyCODONE/APAP 5/325 TABLET PO PRN (17:34)
[2017-10-26] MEDS ORDERED: Sennosides 8.6 MG TABLET PO PRN (17:34)
[2017-10-26] MEDS ORDERED: Ipratropium/Albuterol Neb 3 ML IH PRN (17:34)
[2017-10-26] MEDS ORDERED: Albuterol 2.5 MG/3 ML NEBULIZER IH PRN (17:34)
[2017-10-26] MEDS ORDERED: Furosemide 20 MG TABLET PO PRN (17:34)
[2017-10-26] MEDS ORDERED: Temazepam 15 MG CAPSULE PO PRN (17:34)
[2017-10-26] MEDS ORDERED: CeFAZolin Pre 2,000 MG/100 ML 2,000 MG/100 ML BAG IVPB SCH (17:34)
[2017-10-26] MEDS ORDERED: MOM Conc 10 ML UD.LIQ PO PRN (17:34)
[2017-10-26] MEDS ORDERED: traMADol 50 MG TABLET PO PRN (17:34)
[2017-10-26] MEDS ORDERED: Naloxone 0.4 MG/ML INJ IVP PRN (17:34)
[2017-10-26] MEDS ORDERED: Artificial Tears SOLN 15 ML BOTTLE OP PRN (17:34)
[2017-10-26] MEDS ORDERED: (Rizatriptan Benzoate [Maxalt] 10 MG) PO PRN (17:34)
--- NOTE | 2017-10-26 17:41 | Anesthesia Evaluation Post Op ---
Date of Encounter: 10/26/17 Time of Encounter: 17:40 - Vital Signs Vital Signs: Vital Signs/O2 Sat, Most Current Temp Pulse Resp BP Pulse Ox 97.9 F 61 14 157/77 100 10/26/17 17:18 10/26/17 17:18 10/26/17 17:18 10/26/17 17:18 10/26/17 17:18 - Lungs Lungs: Clear Ascult./Percussion - Airway Airway: Non-obstructed - Cardiovascular Regular Rate - Mental Status Mental Status: Alert & Oriented, Answers Appropriately - Pain Pain Scale: 0 Pain Scale used: Numeric (1 - 10) - Nausea Vomiting Nausea Vomiting: Not Present - Hydration Hydration: Tolerates oral liquids - Discharge PostOp Status: Transfer Patient to floor
[2017-10-26] MEDS: Ascorbic Acid 500 MG TABLET PO SCH (18:19)
[2017-10-26] MEDS: Gabapentin 400 MG CAPSULE PO SCH ×2 (18:19→21:36)
[2017-10-26] MEDS: Nicotine 21 MG PATCH.TD24 TD SCH (18:20)
[2017-10-26] MEDS ORDERED: Acetaminophen IV 1,000 MG/100 ML INFUS..BTL IVPB PRN (19:05)
[2017-10-26] MEDS ORDERED: Ketorolac 30 MG/ML VIAL IVP PRN (19:06)
[2017-10-26] MEDS ORDERED: tiZANidine 4 MG TABLET PO SCH (21:00)
[2017-10-26] MEDS: Topiramate 100 MG TABLET PO SCH (21:30)
[2017-10-26] MEDS: Primidone 50 MG TABLET PO SCH (21:30)
[2017-10-26] MEDS: *HR* OxyCODONE Immed Rel 5 MG TABLET PO PRN (21:30)
[2017-10-26] MEDS: *HR* Enoxaparin 30 MG/0.3 ML SYRINGE SQ SCH (21:32)
[2017-10-26] MEDS: ceFAZolin 2,000 MG in 0.9 % Sodium Chloride 100 ML IVPB SCH (21:37)
[2017-10-27 01:12] LABS: Hematocrit 30.2 % (35.3-44.9); Hemoglobin 10.3 g/dL (11.5-15.4)
[2017-10-27 01:39] LABS: BUN/Creatinine Ratio 10 (6-26); Blood Urea Nitrogen 7 mg/dL (8-23); Calcium 8.6 mg/dL (8.6-10.3); Carbon Dioxide 22 mEq/L (23-29); Chloride 104 mEq/L (98-107); Glucose 145 mg/dL (70-105); Osmolality,Calculated 275 (280-300); Potassium 3.9 mEq/L (3.5-5.1); Sodium 132 mEq/L (136-145); eGFR For African Americans > 60 (> 60); eGFR For Non-African Americans > 60 (> 60)
[2017-10-27] MEDS: ceFAZolin 2,000 MG in 0.9 % Sodium Chloride 100 ML IVPB SCH (04:52)
[2017-10-27] MEDS: *HR* OxyCODONE Immed Rel 5 MG TABLET PO PRN ×4 (04:55→21:19)
--- NOTE | 2017-10-27 08:11 | Orthopedics Progress Note ---
Date of Encounter: 10/27/17 Time of Encounter: 08:11 - Assessment and Plan (1) Status post total hip replacement, left Current Visit: No Status: Chronic (2) COPD (chronic obstructive pulmonary disease) Current Visit: No Status: Chronic Qualifiers: COPD type: unspecified COPD Qualified Code(s): J44.9 - Chronic obstructive pulmonary disease, unspecified (3) Tobacco use Current Visit: No Status: Chronic (4) HTN (hypertension) Current Visit: No Status: Chronic Qualifiers: Hypertension type: essential hypertension Qualified Code(s): I10 - Essential (primary) hypertension (5) KRAIG (obstructive sleep apnea) Current Visit: No Status: Chronic (6) Aspirin allergy Current Visit: No Status: Chronic (7) DVT prophylaxis Current Visit: No Status: Acute (8) Failed total hip arthroplasty with dislocation Current Visit: No Status: Acute Qualifiers: Encounter type: initial encounter Qualified Code(s): T84.028A - Dislocation of other internal joint prosthesis, initial encounter; Z96.649 - Presence of unspecified artificial hip joint; Z96.649 - Presence of unspecified artificial hip joint (9) 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 Afebrile vital signs stable. Operative extremity: Neurovascularly intact Dressing clean dry and intact Calves nontender Assessment and plan: Continue with postoperative care Hemoglobin 10.3 Objective Vital signs: Vital Signs Temp Pulse Resp BP Pulse Ox 10/27/17 07:21 97.9 F 65 18 145/79 98 10/27/17 05:13 97.8 F 71 24 130/70 99 10/26/17 23:29 98.2 F 71 20 113/65 97 10/26/17 20:50 98.7 F 71 20 122/75 95 10/26/17 17:57 97.6 F 61 16 156/72 100 10/26/17 17:37 98.9 F 108 16 178/80 99 10/26/17 17:18 97.9 F 61 14 157/77 100 10/26/17 17:08 97.9 F 61 14 151/73 100 10/26/17 16:58 68 14 146/71 100 10/26/17 16:48 65 15 135/75 100 10/26/17 16:38 98.3 F 57 12 148/59 100 04/11/18 14:53 71 18 108/62 99 10/26/17 14:46 76 18 124/86 98 10/26/17 13:20 18 97 10/26/17 12:27 97.8 F 86 18 125/56 97 Intake and Output 10/26/17 10/27/17 10/27/17 23:59 07:59 15:59 Intake Total 820 / 820 100 / 100 Output Total 1475 / 1475 750 / 750 Balance -655 / -655 -650 / -650 Intake: IV Fluids 100 / 100 100 / 100 Ancef 2,000 MG In 0.9 % Sodium 100 / 100 100 / 100 Chloride 100 ML @ 200 mls/hr IVPB Q8H IDALIA Rx#:[id number] Oral 720 / 720 0 / 0 Output: Urine 1275 / 1275 750 / 750 Estimated Blood Loss 200 / 200 Other: # Voids 1 - Labs CBC & BMP: 10/27/17 00:39 10/27/17 00:39 Labs: Abnormal lab results Hgb 10.3 g/dL (11.5-15.4) L 10/27/17 00:39 Hct 30.2 % (35.3-44.9) L 10/27/17 00:39 Sodium 132 mEq/L (136-145) L 10/27/17 00:39 Carbon Dioxide 22 mEq/L (23-29) L 10/27/17 00:39 BUN 7 mg/dL (8-23) L 10/27/17 00:39 Glucose 145 mg/dL (70-105) H 10/27/17 00:39 Calculated Osmolality 275 (280-300) L 10/27/17 00:39 - VTE Documentation of Mechanical Device: Venous foot pump, device Consult Discharge Plan - Plan Referrals: Giselle Henry, CORPORATE CLAIMS EXAMINER [Primary Care Provider] -
[2017-10-27] MEDS: Nicotine 21 MG PATCH.TD24 TD SCH (08:14)
[2017-10-27] MEDS: Primidone 50 MG TABLET PO SCH ×2 (08:15→21:19)
[2017-10-27] MEDS: *HR* Enoxaparin 30 MG/0.3 ML SYRINGE SQ SCH (08:15)
[2017-10-27] MEDS: Ascorbic Acid 500 MG TABLET PO SCH ×2 (08:15→16:05)
[2017-10-27] MEDS: Famotidine 20 MG TABLET PO SCH (08:15)
[2017-10-27] MEDS: Multivit/Ca/Min/Fe/FA 1 TAB TABLET PO SCH (08:15)
[2017-10-27] MEDS: Gabapentin 400 MG CAPSULE PO SCH ×3 (08:15→21:19)
[2017-10-27] MEDS: Topiramate 100 MG TABLET PO SCH ×2 (08:15→21:19)
[2017-10-27] MEDS ORDERED: Nicotine 21 MG PATCH.TD24 TD SCH (09:00)
--- NOTE | 2017-10-27 12:16 | Event Note ---
Date of Encounter: 10/27/17 Time of Encounter: 12:15 PCR - POD#1 - Left Hip - Revision femoral component 10/26/17 Patient seen at bedside. Labs reviewed. Pain control: adequate Participating in PT. All questions and concerns addressed. Educated on use of incentive spirometer. Encouraged ambulation and proper hydration. Patient educated on post-operative restrictions and post-operative care. Addressed: Discharge plan: Home - Knee tscope brace x 4 weeks and hip aBD pillow x 6 weeks
[2017-10-27] MEDS: *HR* Rivaroxaban 10 MG TABLET PO SCH (16:05)
[2017-10-27] MEDS ORDERED: tiZANidine 4 MG TABLET PO PRN (17:03)
--- NOTE | 2017-10-27 17:09 | Electrocardiograph Report ---
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
[2017-10-28 02:07] LABS: Hematocrit 24.5 % (35.3-44.9)
[2017-10-28 02:10] LABS: Hemoglobin 8.4 g/dL (11.5-15.4)
[2017-10-28 02:24] LABS: BUN/Creatinine Ratio 17 (6-26); Blood Urea Nitrogen 10 mg/dL (8-23); Calcium 8.3 mg/dL (8.6-10.3); Carbon Dioxide 23 mEq/L (23-29); Chloride 106 mEq/L (98-107); Glucose 109 mg/dL (70-105); Osmolality,Calculated 278 (280-300); Potassium 3.5 mEq/L (3.5-5.1); Sodium 134 mEq/L (136-145); eGFR For African Americans > 60 (> 60); eGFR For Non-African Americans > 60 (> 60)
[2017-10-28] MEDS: *HR* OxyCODONE Immed Rel 5 MG TABLET PO PRN ×3 (04:51→15:31)
[2017-10-28] MEDS ORDERED: Furosemide 20 MG/2 ML VIAL IVP PRN (06:44)
--- NOTE | 2017-10-28 06:44 | Orthopedics Progress Note ---
Date of Encounter: 10/28/17 Time of Encounter: 06:44 - Assessment and Plan (1) Status post total hip replacement, left Current Visit: No Status: Chronic (2) COPD (chronic obstructive pulmonary disease) Current Visit: No Status: Chronic Qualifiers: COPD type: unspecified COPD Qualified Code(s): J44.9 - Chronic obstructive pulmonary disease, unspecified (3) Tobacco use Current Visit: No Status: Chronic (4) HTN (hypertension) Current Visit: No Status: Chronic Qualifiers: Hypertension type: essential hypertension Qualified Code(s): I10 - Essential (primary) hypertension (5) KRAIG (obstructive sleep apnea) Current Visit: No Status: Chronic (6) Aspirin allergy Current Visit: No Status: Chronic (7) DVT prophylaxis Current Visit: No Status: Acute (8) Failed total hip arthroplasty with dislocation Current Visit: No Status: Acute Qualifiers: Encounter type: initial encounter Qualified Code(s): T84.028A - Dislocation of other internal joint prosthesis, initial encounter; Z96.649 - Presence of unspecified artificial hip joint; Z96.649 - Presence of unspecified artificial hip joint (9) 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 Afebrile vital signs stable. Operative extremity: Neurovascularly intact Dressing clean dry and intact Calves nontender Assessment and plan: Continue with postoperative care Hematocrit 24 transfuse 2 units discharged later today Objective Vital signs: Vital Signs Temp Pulse Resp BP Pulse Ox 10/28/17 04:26 98.9 F 72 15 116/65 93 10/27/17 23:26 98.3 F 82 17 127/71 97 10/27/17 18:50 98.3 F 86 17 113/65 98 10/27/17 16:30 97.5 F L 73 18 116/80 98 10/27/17 11:48 98.1 F 76 20 140/73 100 10/27/17 07:21 97.9 F 65 18 145/79 98 Intake and Output 10/27/17 10/27/17 10/28/17 15:59 23:59 07:59 Intake Total 240 / 240 600 / 600 600 / 600 Output Total 625 / 625 1200 / 1200 1100 / 1100 Balance -385 / -385 -600 / -600 -500 / -500 Intake: Oral 240 / 240 600 / 600 600 / 600 Output: Urine 625 / 625 1200 / 1200 1100 / 1100 Other: Meal Breakfast Percent of Meal Consumed 100% # Voids 2 1 Weight 73 kg Patient Weight 10/28/17 23:59 Weight 73 kg - Labs CBC & BMP: 10/28/17 01:27 10/28/17 01:27 Labs: Abnormal lab results Hgb 8.4 g/dL (11.5-15.4) L D 10/28/17 01:27 Hct 24.5 % (35.3-44.9) L 10/28/17 01:27 Sodium 134 mEq/L (136-145) L 10/28/17 01:27 Glucose 109 mg/dL (70-105) H 10/28/17 01:27 Calculated Osmolality 278 (280-300) L 10/28/17 01:27 Calcium 8.3 mg/dL (8.6-10.3) L 10/28/17 01:27 - VTE Documentation of Mechanical Device: Venous foot pump, device Consult Discharge Plan - Plan Referrals: Giselle Henry, MANAGER FI[employer] INVESTIGATIONS [Primary Care Provider] - Prescriptions: Nicotine Patch [Nicoderm] 21 mg TD DAILY #20 [email or web address]
[2017-10-28] MEDS: Ascorbic Acid 500 MG TABLET PO SCH ×2 (07:47→16:46)
[2017-10-28] MEDS: Gabapentin 400 MG CAPSULE PO SCH ×2 (07:47→15:31)
[2017-10-28] MEDS: Primidone 50 MG TABLET PO SCH (07:47)
[2017-10-28] MEDS: Famotidine 20 MG TABLET PO SCH (07:47)
[2017-10-28] MEDS: Multivit/Ca/Min/Fe/FA 1 TAB TABLET PO SCH (07:47)
[2017-10-28] MEDS: Topiramate 100 MG TABLET PO SCH (07:48)
[2017-10-28] MEDS: Nicotine 21 MG PATCH.TD24 TD SCH (07:48)
[2017-10-28 12:00] VITALS: BP 123/68
[2017-10-28] MEDS: *HR* Rivaroxaban 10 MG TABLET PO SCH (16:46)
== END 2017-10-28 19:47 | disposition home health service (06) | DRG 468 ==
LOC: SAMDAY 12:09 → 3NENU 17:25
PROVIDERS: ADMIT Orthopaedic Surgery; ATTEND Orthopaedic Surgery